=== PATIENT | female | born 1945 | race Caucasian/White ===

== ENCOUNTER 2021-09-05 14:58 | Outpatient (RCR) | payer MEDICARE, SELFPAY | END 2021-09-23 23:59 | disposition home or self-care (01) | LOC: CCIC 14:58 | PROVIDERS: PCP Family Medicine; Visit Provider Internal Medicine Hematology & Oncology | DX: C50.911 Malignant neoplasm of unspecified site of right female breast (principal); Z17.1 Estrogen receptor negative status [ER-]; M79.10 Myalgia, unspecified site | CPT/HCPCS: 99212; 99214 ==

== ENCOUNTER 2022-02-21 09:28 | Outpatient (CLI) | payer MEDICARE, SELFPAY ==
--- NOTE | 2022-02-21 09:45 | CRLHL7_ITS ---
For Patients: As a result of the Century Cures Act, medical imaging exams and procedure reports are released immediately into your electronic medical record. You may view this report before your referring provider. If you have questions, please contact your health care provider. BILATERAL SCREENING MAMMOGRAM WITH COMPUTER-AIDED DETECTION AND TOMOSYNTHESIS TECHNIQUE: CC and MLO views were obtained. These mammographic images have been obtained using full-field digital technique. These mammographic images were interpreted with the benefit of computer-aided detection. Breast Tomosynthesis was used in this interpretation. COMPARISON FILM: 12/22/20, 12/20/19, 12/17/18. FINDINGS: The breasts are heterogeneously dense, which may obscure small masses IMPRESSION: There is no radiographic evidence for malignancy. ASSESSMENT: BI-RADS Category 2: Benign RECOMMENDATION: Routine screening mammogram in 1 year. A lay language report of this examination will be provided to the patient. Mata Palacios M.D. Diagnostic Radiologist [email or web address] CJ/Dictated by: Mata Palacios MD @ 02/21/2022 10:53:00 AM (Electronically Signed)
== END 2022-02-21 09:29 | disposition home or self-care (01) ==
LOC: MAMMO 09:30
PROVIDERS: PCP Family Medicine; Visit Provider Internal Medicine Hematology & Oncology
DX: Z12.31 Encounter for screening mammogram for malignant neoplasm of breast (principal); R92.2 Inconclusive mammogram
CPT/HCPCS: 77063; 77067

== ENCOUNTER 2022-03-07 10:45 | Outpatient (CLI) | payer MEDICARE, SELFPAY ==
[2022-03-07 13:00] LABS: Albumin* 4.5 g/dL (3.3-5.0); Chloride* 106 mmol/L (96-114)
[2022-03-07 13:01] LABS: Potassium* 4.5 mmol/L (3.6-5.1); Sodium* 141 mmol/L (135-149)
[2022-03-07 13:03] LABS: Bilirubin Total* 0.5 mg/dL (0.1-1.5); Carbon Dioxide* 30 mmol/L (20-32); Cholesterol* 183 mg/dL (90-199); Creatinine* 0.8 mg/dL (0.5-1.5); Estimated Glomerular Filt Rate 75 ml/min; Total Protein* 7.3 g/dL (6.0-8.3)
[2022-03-07 13:04] LABS: Alanine Aminotransferase* 18 U/L (4-35); Alkaline Phosphatase* 57 U/L (40-150); Aspartate Amino Transferase* 25 U/L (12-35); Blood Urea Nitrogen* 14 mg/dL (7-30); Calcium* 9.7 mg/dL (8.4-10.6); Glucose* 97 mg/dL (60-115); HDL Cholesterol* 65 mg/dL (>=50); LDL Cholesterol Calculated 82 mg/dL (<100); Triglycerides* 178 mg/dL (40-149)
[2022-03-07 13:32] LABS: TSH With Reflex to FT4* 0.539 uIU/mL (0.270-4.200)
== END 2022-03-07 10:46 | disposition home or self-care (01) ==
LOC: NFLDREF 10:45
PROVIDERS: PCP Family Medicine; Visit Provider Family Medicine
DX: E78.5 Hyperlipidemia, unspecified (principal); E03.9 Hypothyroidism, unspecified
CPT/HCPCS: 80053; 80061; 84443

== ENCOUNTER 2023-02-25 09:58 | Outpatient (CLI) | payer MEDICARE, SELFPAY ==
--- NOTE | 2023-02-25 10:15 | CRLHL7_ITS ---
For Patients: As a result of the Century Cures Act, medical imaging exams and procedure reports are released immediately into your electronic medical record. You may view this report before your referring provider. If you have questions, please contact your health care provider. BILATERAL SCREENING MAMMOGRAM WITH COMPUTER-AIDED DETECTION AND TOMOSYNTHESIS TECHNIQUE: CC and MLO views were obtained. These mammographic images have been obtained using full-field digital technique. These mammographic images were interpreted with the benefit of computer-aided detection. Breast Tomosynthesis was used in this interpretation. COMPARISON FILM: 02/21/22, 12/22/20, 12/20/19. FINDINGS: The breasts are heterogeneously dense, which may obscure small masses IMPRESSION: There is no radiographic evidence for malignancy. ASSESSMENT: BI-RADS Category 2: Benign RECOMMENDATION: Routine screening mammogram in 1 year. A lay language report of this examination will be provided to the patient. Mata Palacios M.D. Diagnostic Radiologist [email or web address] MAX/[email or web address] Transcribed: 4:50 p.mValdo so/Dictated by: Mata Palacios MD @ 02/25/2023 12:14:00 PM (Electronically Signed)
== END 2023-02-25 09:59 | disposition home or self-care (01) ==
LOC: MAMMO 09:59
PROVIDERS: PCP Family Medicine; Visit Provider Family Medicine
DX: Z12.31 Encounter for screening mammogram for malignant neoplasm of breast (principal); R92.2 Inconclusive mammogram
CPT/HCPCS: 77063; 77067

== ENCOUNTER 2023-03-03 09:50 | Outpatient (RCR) | payer MEDICARE, SELFPAY | END 2023-03-29 23:59 | disposition home or self-care (01) | LOC: CCIC 09:50 | PROVIDERS: PCP Family Medicine; Visit Provider Physician Assistant | DX: C50.911 Malignant neoplasm of unspecified site of right female breast (principal); Z17.1 Estrogen receptor negative status [ER-]; M25.512 Pain in left shoulder; M54.9 Dorsalgia, unspecified | CPT/HCPCS: 99212; 99213; 99214; G0463 ==

== ENCOUNTER 2023-03-25 10:26 | Outpatient (CLI) | payer MEDICARE, SELFPAY | END 2023-03-25 10:27 | disposition home or self-care (01) | PROVIDERS: PCP Family Medicine; Visit Provider Family Medicine | DX: E78.2 Mixed hyperlipidemia (principal); E03.9 Hypothyroidism, unspecified; R53.83 Other fatigue | CPT/HCPCS: 80053; 80061; 84443 ==

== ENCOUNTER 2023-07-02 12:31 | Outpatient (RCR) | payer MEDICARE, SELFPAY | END 2023-12-29 23:59 | disposition home or self-care (01) | LOC: CCIC 12:31 | PROVIDERS: PCP Family Medicine; Visit Provider Internal Medicine Hematology & Oncology | DX: C50.911 Malignant neoplasm of unspecified site of right female breast (principal); Z17.1 Estrogen receptor negative status [ER-]; Z85.3 Personal history of malignant neoplasm of breast | CPT/HCPCS: 99214; G0463 ==

== ENCOUNTER 2023-09-26 06:29 | Day surgery (SDC) | payer MEDICARE, SELFPAY ==
[2023-09-26] VITALS (9 sets, daily range): BP systolic 151–176; BP diastolic 70–84; PULSE 61–73; RESP 16–18; TEMP 36.5–36.6; O2SAT 96–100; BMI 33.6
--- OUTSIDE RECORDS SUMMARY | 2023-09-26 06:32 | XMS_ITS | Clinical Summary ---
Author Organization [facility] Address [place], [place] [address] Care Team Providers Care Network Operations Analyst Name Role Phone Bailee Edwards RN Unavailable [phone] Allergies No known active allergies Medications Medication Sig Dispensed Refills Start Date End Date Status DOCOSAHEXANOIC ACID/EPA (FISH OIL ORAL) Take by mouth. Active bisacodyl (DULCOLAX, BISACODYL,) 5 mg tablet Take 1 tablet by mouth once daily if needed for Constipation. 0 09/18/2017 Active acetaminophen (TYLENOL EXTRA STRGTH) 500 mg tabletIndications:[place] east cancer, right breast (HC) Take 2 tablets by mouth every 6 hours if needed. Max acetaminophen dose: 4000mg in 24 hrs. 30 tablet 01/18/2020 Active cyclobenzaprine (FLEXERIL) 5 mg tablet Take 1 tablet (5 mg total) by mouth 3 (three) times a day as needed for muscle spasms (Prior to radiotherapy). 30 tablet 03/15/2020 Active escitalopram oxalate (LEXAPRO) 10 mg tabletIndications:Ge neralized anxiety disorder Take 1 tablet by mouth daily 90 Tablet 11/14/2020 Active Lactobac 40-Bifido 3-S.thermop (Probiotic) 100 billion cell capIndications:Acute diverticulitis,Acute cystitis without hematuria Take 1 Tablet by mouth once daily. 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, estrogen receptor negative 01/12/2020 Cancer Staging:Clinical stage from 01/12/2020:Stage IB(cT1a, cN0, cM0, G2, ER-, FL-, HER2-) - Signed by Gee Ochoa MD on 01/12/2020 Hyperopia of both eyes with astigmatism and pres byopia 09/18/2017 Breast cancer left breast 2010 lumpectomy w/axillary node dissection for stage IIA 12/22/2010 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 Immunizations Name Administration Dates Next Due COVID-19 vaccine (Moderna 100mcg/0.5mL) [place] 06/21/2020,05/25/2020 Influenza, High-dose Inactivated 017,11/15/2015,12/03/2014,2013,11/09/2012,10/22/2011,11/27/2010 Influenza, High-dose Quadriv alent Inactivated 12/24/2019 Influenza, IIV3 (Age 6-35 mos) 11/17/2008 Influenza, IIV3 (Age >=3 years) 12/10/2007 Influenza, Inactivated AIIV4 (Age 65+ Years) Preserv Free 12/22/2020 Influenza, Inactivated IIV3 (Age 65+ Years) Preserv Free 11/13/2018,12/01/2016 MMR 03/28/2014 Pneumococcal Poly,23-Valent (Pneumovax) 10/22/2011 Tdap 12/03/2014 Zoster (Zostavax-ZVL, live) 10/17/2010 Family History Medical History Relation Name Comments Genetic Other daughter - glau coma suspect Cancer-breast No Family History Cancer-colon No Family History Cancer-ovarian No Family History Cancer-prostate No Family History Relation Name Status Comments Mother (Age 66) Other Social History Tobacco Use Types Packs/Day Years Used Date Smoking Tobacco: Former Cigarettes Smokeless Tobacco: Never Comments:quit 16yrs ago Alcohol Use Standard Drinks/Week Comments Yes 0 (1 standard drink = 0.6 oz pur e alcohol) PHQ-2 Answer Date Recorded PHQ-2 TOTAL SCORE 0 09/06/2020 Social Connections Answer Date Recorded Frequency of Communication with Friends and Fami ly Not on file 02/22/2021 Financial Resource Strain Answer Date R ecorded Difficulty of Paying Living Expenses Not on file 02/22/2021 Difficulty of Paying Living Expenses Not on file 02/22/2021 Sex and Gender Information Value Date Recorded Sex Assigned at Not on file Gender Identity Not on file Sexual Orientation Not on file Obstetrics History Para Term AB IAB SAB Ectopic Multiple Livin g Live Births 7 7 7 7 Date Outcome GA Total Labor Labor//3rd Weight Sex Type Anes PTL Samantha A1 A5 Name Clin Term Term Term Term Term Term Term Last Filed Vital Signs Vital Sign Reading Time Taken Comments Blood Pressure 136/75 12/08/2020 12:56 PM CDT Pulse 75 12/27/2020 5:54 PM CDT Temperature 36.4 ??C (97.5 ??F) 12/27/2020 5:54 PM CD T Respiratory Rate 16 12/08/2020 12:56 PM CDT Oxygen Saturation 98% 12/27/2020 5:54 PM CDT Inhaled Oxygen Concentration - - Weight 93.2 kg (205 lb 8 oz) 12/27/2020 5:54 PM CDT Height 162.6 cm (5' 4) 04/26/2020 11:41 AM MORPHOLOGIST Body Mass Index 35.27 04/26/2020 11:41 AM MORPHOLOGIST Plan of Treatment Health Maintenance Due Date Last Done Comments Hepatitis C screening for ag e 18-79 10[birth year]11/1963 DEXA/DXA scan for age 65+ 10/11/2008 Medicare Wellness for age 65+ 10/11/2008 Zoster (shingles) series for age 50+ (2 of 3) 12/12/2010 10/17/2010 Pneumococcal series for age 65+ (2 of 2 - PCV) 10/21/2012 10/22/2011 BMI (ht and wt on same day) for age 18+ 04/26/2021 04/26/2020, 01/10/2020 Depression screening for age 12+ 09/06/2021 09/07/19 21, 04/26/2020 COVID-19 vaccine series (3 - 2022- season) 2022 06/21/2020, 05/25/2020 Influenza for age 65+ 10/26/2023 12/22/2020 , 12/24/2019, 11/13/2018, Additional history exists Tetanus booster 12/03/2024 12/03/2014 Tdap Completed 12/03/2014 Advance Directives * Full Code (Latest Code Status on File) Date Activated Date Inactivated Comments 01/18/2020 8:28 AM 01/18/2020 3:33 PM Question Answer Comments Code Status Discussion: Not Discussed * Full Code Date Activated Date Inactivated Comments 12/14/2010 6:37 AM 12/15/2010 2:58 AM * Full Code Date Activated Date Inactivated Comments 11/13/2010 5:44 PM 11/14/2010 7:14 PM Care Teams Network Operations Analyst Relationship Specialty Start Date End Date Bailee Edwards, RN [address] [facility] [address] [place] [address] Cancer Nurse Coordinator Oncology 01/10/20
--- OUTSIDE RECORDS SUMMARY | 2023-09-26 06:32 | XMS_ITS | Continuity of Care Document ---
Author Organization [facility] Address [address] [address] [place] [address] Phone Care Team Providers Care Edge Dyer Name Role Phone Damien TANNER, Beau Unavailable Unavailable Allergies, Adverse Reactions, Alerts Substance Reaction Status Criticality No Known allergies Medications Medication Instructions Dosage Effective Dates (start - stop) Status Comments MiralaxBisacodylMagCit Colon Prep Use as directed - Active simvastatin 10 mg Tab one tablet a day - Active cyclobenzaprine 10 mg Tab every day as needed - Active naproxen 500 mg Tab Take 2 tabletsby mouth daily as needed - Active Tylenol unknown as needed - Active Synthroid unknown Take 1 tablet by mouth daily - Active Nephrocaps 1 mg Cap 1 tab po qd - Acti ve [place] Aspirin 325 mg Tab Take one t ablet by mouth daily - Active Stool Softener 100 mg Cap one tablet a day 2007 - Active Procedures Procedure Date Level Iv-surg Path Gross/micro 08 Offic Cons New/estab Mod-hi 60 08 Advance Directives Directive Yes / No Effective Date File Name No Information Encounters Encounter Description Practice Location Reason(s) For Visit Diagnoses Date Provider Providers Copied on Encounter [facility], [address] [address], [place], [id number], [place] tel:[phone] [facility] No Information [address] Damien Yanez. [address] [facility], [place], [place], [id number], [place]. tel:[phone] [facility], [address] [address], [place], [id number], [place] tel:[phone] [facility] No Information 8 Satish Hyde. [address] [facility], [address], [place], [place], [id number], [place]. tel:[phone] [facility], [address] [address], [place], [id number], [place] tel:[phone] [facility] DiarrheaColon Cancer Screening 8 No Information Offic Cons New/estab Mod-hi 60 [facility], [address] [address], [place], [id number], [place] tel:[phone] [facility] Irritable Bowel Syndrome 8 No Information Family History Family Member Type Diagnosis Age At Onset First degree family history Problem (finding) alcoholism First degree family history Problem (finding) Cirrhosis First degree family history Problem (finding) No history of Crohn's First degree family history Problem (finding) No history of Ulcerative Colitis First degree family history Problem (finding) No history of Cancer, colon First degree family history Problem (finding) No Family history of No history of Colon Polyps Payers Payer name Insurance type Covered green party ID Authoriza tion(s) No Information Social History Type Description Quantity Date Captured Comments Sex Female Smoking Status No Information Chief Complaint And Reason For Visit No Information Reason For Referral Reason For Referral No Information History Of Present Illness Encounter Date Complaint History Of Prese nt Illness No Information Functional Status Date Functional Assessmen t No Information Instructions Date Instruction Additional Infor mation No Information Assessments Type Assessment Date No Information Patient Care Teams Name Effective Dates (start - stop) Status Members No Information
--- NOTE | 2023-09-26 07:01 | W.PM.H&PU ---
History & Physical Update History & Physical Update H&P Reviewed and patient assessed: No changes noted
--- NOTE | 2023-09-26 07:26 | P.ORPRC_ITS ---
Procedure Note Date of procedure: 09/26/23 Procedure: PREOPERATIVE DIAGNOSIS: 1. Right middle trigger digit POSTOPERATIVE DIAGNOSIS: 1. Right middle trigger digit PROCEDURE: 1. Right middle trigger (A1 zev) release SURGEON: Placido Kamara MD. HARBOR TUG CAPTAIN: Santiago Meek. An production assistant was critical for this case to aid in patient positioning, tissue retraction, limb manipulation/positioning, and closure. ANESTHESIA: Local anesthetic IMPLANTS: None TOURNIQUET: For min at 200 mmHg COMPLICATIONS: None INDICATIONS: The patient is a pleasant 77-year-old female who has history of right middle finger pain and triggering. Symptoms did not improve with conservative management. Patient subsequently elected to proceed with surgical intervention consisting of right middle finger A1 zev release. Prior to surgery risks and benefits were discussed with patient all questions were answered informed consent was obtained. DESCRIPTION OF PROCEDURE: Patient was seen preoperatively and operative site was marked. Patient was then brought to the operating room placed in supine position on the OR table. A tourniquet was placed on the patient's right arm and right upper extremity was prepped and draped in usual sterile fashion. A surgical time-out was performed confirming patient name, procedure, and location. The subcutaneous tissues overlying the right middle finger A1 zev were injected with combination of 1% lidocaine and 0.25% bupivacaine. Operative extremity was then elevated and exsanguinated with an Esmarch, and tourniquet was inflated to 200 mmHg. A skin incision measuring approximately 1 cm was made longitudinally over the A1 zev of the right middle finger. Blunt dissection was used to dissect through subcutaneous tissues. The underlying flexor tendons and A1 zev were identified and retractors were used to protect the neurovascular structures. The A1 zev was then released using a tenotomy scissor. After complete release of the A1 zev, the patient was asked to flex and extend their fingers, and no active triggering was noted. Tourniquet was then released and hemostasis was achieved with bipolar electrocautery. Total tourniquet time was for minutes. Wound was the irrigated with normal saline. Skin incision was closed with 4-0 nylon horizontal mattress sutures, and a sterile dressing was applied. Patient was then transferred to the recovery room in stable condition. POSTOPERATIVE PLAN: 1. Patient will be discharged to home day of surgery. 2. They were given instructions for wound care and finger range of motion exercises. 3. Return to the clinic for follow-up evaluation in 10-14 days for wound check and suture removal.
[2023-09-26] MEDS: BUPIVACAINE 0.25% 30 ML INJECTION (07:35)
[2023-09-26] MEDS: BACITRACIN OINTMENT BULK TUBE 1 APPLIC TOPICAL (08:00)
== END 2023-09-26 08:19 | disposition home or self-care (01) ==
LOC: OR 06:30
PROVIDERS: PCP Family Medicine; Visit Provider Orthopaedic Surgery
PROC: (CPT 26055; principal; 2023-09-26 07:30)
DX: M65.331 Trigger finger, right middle finger (principal)
CPT/HCPCS: 26055; J0665

== ENCOUNTER 2023-12-18 11:15 | Outpatient (RCR) | payer MEDICARE, SELFPAY ==
--- NOTE | 2023-07-29 13:23 | OT.OPOE ---
OT Outpatient Ortho Eval OT Outpatient Ortho Eval* Start: 07/29/23 09:18 Freq: Status: Active Protocol: Document 07/29/23 09:18 REMBERTO (Rec: 07/29/23 13:20 REMBERTO [id number]) E-signed By Nubia Callahan, OTR/L, CLT OT OP Ortho Eval Details Complexity Complexity Medium Insurance Information Insurance Information Blue Cross/Blue Shield, Medicare B Outpatient History/Precautions Current Condition/Medical Diagnosis Referring Provider Dr. Michelle Carr Medical Diagnoses M79.641 Pain in the Right Hand M79.642 Pain in the Left Hand Treatment Diagnosis R20.2 paresthesia M62.81, hand weakness Date of Onset Chronic, >1 year and worse in the last 3 months Medical Conditions Depression,Arthritis Other Conditions PMH includes but is not limited to: Bilateral hand pain (Acute) M79.641 - Pain in right hand ( ICD-10) M79.642 - Pain in left hand ( ICD-10) Right knee pain (Acute) M25.561 - Pain in right knee ( ICD-10) Left shoulder pain (Acute 2020 ) ~01/2021. referred to [facility] PT M25.512 - Pain in left shoulder (ICD-10) Hyperlipidemia (Acute) E78.5 - Hyperlipidemia, unspecified (ICD-10) Major depression (Acute) F32.9 - Major depressive disorder, single episode, unspecified (ICD-10) Hypothyroidism (Acute) E03.9 - Hypothyroidism, unspecified (ICD-10) Back pain (Acute) M54.9 - Dorsalgia, unspecified (ICD-10) Breast cancer (Acute 2019) R 12/2019 s/p lumpy&rad. L 2010 s/p lumpy, rad & chemo. continues yearly mammograms C50.919 - Malignant neoplasm of unspecified site of unspecified female breast (ICD -10) Medications: acetaminophen 325 mg PO Q4H PRN cholecalciferol (vitamin D3) 25 mcg PO BID docusate sodium 100 mg PO BID escitalopram oxalate 10 mg PO DAILY levothyroxine 112 mcg PO DAILY multivitamin with minerals ( Multiple Vitamin-Minerals tablet) 1 tab PO QDAY omega-3 fatty acids 1,000 mg PO BID simvastatin 20 mg PO .Bedtime Medical/Functional History Medical History Reviewed Yes Prior Level of Function/Mobility Patient lives with her spouse (Iván) in [place], she is retired (was a business specialist for 18 years) and now enjoys crocheting, caring for her pets and reading. Social History Employment Status Retired Current Occupation Retired business specialist Hobbies crocheting, caring for her pets and reading. Fitness Does shoulder exercises that were prescribed to her a few years ago Ortho Subjective Subjective Subjective This is a 77 year old patient, who was seen in the clinic on 07/02/23 for hand pain. Her PCP is Dr. Homar Salcedo. I reviewed his note from February 2023 which described bilateral hand pain most likely from osteoarthritis and a recommendation was given for thermal gloves. She has chronic bilateral hand pain especially her right middle finger has been hurting (PIP and MCP joints). Both hands feel very stiff in the morning . She did have bilateral x- rays done at the apt on 07/02/23 . She reports some burning sensation on the right and left hand as well which follows the median nerve pathway (could be having mild carpal tunnel symptoms). She likes to tiarra, read, take care of her yard outside in the summer (pull weeds) and care for her pets. Pain Assessment Pain Pain Yes Pain Comments 5/10 R hand middle finger bilateral thumbs 4/10 OT Objective Data Skin/Wounds/Edema Comments On Eval, no noticeable swelling was present but patient (and her spouse who was present for this EVAL) reported intermittent swelling on the R hand only Sensation Sensation Assessment Summary Comments Sensation is intact to hot/ cold, pressure and light touch Patient describes a burning sensation on the middle finger and thenar pad bilateral hands Additional Information Objective Additional Information Hands bilaterally there is not significant lesions. Some osteoarthritic changes in the thumb base on both sides. Right middle finger has a little enlarged PIP joint there is some palpation tenderness on MCP joint on the middle finger. She has equal banking officer strengths, but therapist was unable to formally test banking officer/pinches on EVAL as the dynamometer was out of the clinic for calibration. There are no lesions present to suggest trigger finger, patient does not report locking or notice any clicking noises, just reporting stifness of the joints. OT Problems Problems Problems Decreased Strength,Decreased Dexterity,Pain,Sensory Sensitivity,Lifting,Gripping, Pinching Problems Comments R hand, middle finger is tight and burning sensation, CMC mild discomfort (swells up) L hand, middle finger is tight and burning sensation, CMC joint of the L hand consistently (does not notice swelling) Problem list includes: Pain to bilateral hands with R ( dominant hand pain worse then the L hand); Paresthesias: numbness and/or tingling, which can impair the patient?s fine motor control of affected digits; Declined banking officer and/or pinch strength to affected hand; Declined endurance of affective hand for repetitive activity; Declined functional use of affective hand for ADL tasks; Declined knowledge of ergonomic education, proper body mechanics and joint protection during ADL?s, and in the work environment. Other Problems Writing,Opening Containers, Dressing,Fasteners,Sleeping Patient Potential Good Assessment Assessment Assessment This is a 77 year old patient, who was seen in the clinic on 07/02/23 for hand pain. Her PCP is Dr. Homar Salcedo. I reviewed his note from February 2023 which described bilateral hand pain most likely from osteoarthritis and a recommendation was given for thermal gloves. She has chronic bilateral hand pain especially her right middle finger has been hurting (PIP and MCP joints). Both hands feel very stiff in the morning . She did have bilateral x- rays done at the apt on 07/02/23 . She reports some burning sensation on the right and left hand as well which follows the median nerve pathway (could be having mild carpal tunnel symptoms). She likes to tiarra, read, take care of her yard outside in the summer (pull weeds) and care for her pets. Problem list includes: Pain to bilateral hands with R ( dominant hand pain worse then the L hand); Paresthesias: burning, numbness and/or tingling, which can impair the patient?s fine motor control of affected digits; Declined banking officer and/or pinch strength to affected hand; Declined endurance of affective hand for repetitive activity; Declined functional use of affective hand for ADL tasks; Declined knowledge of ergonomic education, proper body mechanics and joint protection during ADL?s, and in the work environment. PLAN: treat pain symptoms with the use of modalities as indicated, manual therapy, development of an individualized HEP to progress /improve banking officer and pinch strength, patient education on the progression of treatment (splinting wear schedule), education on CTS & CMC arthritis; Pt will be referred back to referring physician/ ORTHO provider should symptoms persist or worsen. Patient is agreeable to the plan and motivated to make progress. Occupational Therapy Treatment Plan - OP Potential Rehabilitation Potential Good Barriers Barriers to goal attainment Chronic Arthritis Set Goals Goals Set with Patient Yes Goals Goals 1. Patient will have an increase in score on the Upper Extremity Functional Index ( UEFI) (higher score =less impairment). Score on EVAL 50/ 80 2. Patient upon discharge from therapy should be independent with home program and have returned to their premorbid level of function 3. Patient will demonstrate independence with adaptations and adaptive equipment during ADL?s w/o verbal cues. 4. Patient will report resolution of paresthesias and /or pain to affected hands ( both R and L). 5. Patient will report the ability to lift her crockpot from the kitchen sink to the kitchen island. Target Date 12 weeks Treatment Plan Treatment Plan Evaluation,Edema Control, Iontophoresis,Joint Mobilization,Manual Therapy, Splinting,Ultrasound, Therapeutic Exercise,Self Care /Home Management,Education Expected Frequency 1-2x Week Expected Duration 8-10 Weeks Home Program Home Program Home Program Initiated Home Program Specifics Tendon Gliding Exercise 1. Straight 2. Salute 3. Hook 4. Straight Fist Always return to straight after each exercise Repeat 8 ? 10 times, 3 ? 4 times per day 2. FDS Gliding Hold fingers as shown. Bend the involved finger at the middle joint (PIP joint), hold for 5 seconds, and then straighten the finger. Repeat 8 ? 10 times, 3 ? 4 times per day 3. Active Finger Extension Exercises 1. Blocked PIP Extension Holding involved finger with uninvolved hand, straighten finger fully, focusing on extension at middle joint ? hold for a few seconds. Repeat 8 ? 10 times, 3 ? 4 times per day 4. Salute Bend fingers at large joints as far as possible, keeping middle and distal joints straight, then return to starting position. Repeat 8 ? 10 times, 3 ? 4 times per day. 5. Finger Extension With your hand and fingers resting on the table lift all fingers up, while keeping your hand flat. Repeat 8 ? 10 times, 3 ? 4 times per day. 6. Individual Finger Extension With your hand and fingers resting on the table lift each finger individually, while keeping your hand flat. Repeat 8 ? 10 times, 3 ? 4 times per day 7. Gentle putty squeezes 2-3 mins in each hand 2x/daily ( building up to 5 mins in each hand 3x/daily) Isometric thumb extension ( pushing up): With your hand resting on the little finger side, place your thumb in the position in the picture. Use your other hand to resist (or block) your thumb from trying to push up towards the ceiling . Push against this resistance 3 times, at about 10 % of your full force, for 5 seconds to start with. Gradually build up the force of the contraction, the time you hold it, and the repetitions when able. Isometric abduction (pushing out): Staying in the same position, move your thumb outwards and use your other hand to resist or block the movement Push against this resistance 3 times, at about 10 % of your full force, for 5 seconds to start with. Gradually build up the force of the contraction, the time you hold it, and the repetitions when able. Isometric adduction (pulling in): This time resist the movement of the thumb pulling in towards the fingers. Push against this resistance 3 times, at about 10 % of your full force, for 5 seconds to start with. Gradually build up the force of the contraction, the time you hold it, and the repetitions when able. Isometric wrist strengthening: With your elbow at 90 degrees and your wrist straight, hold a bottle of water (filled to the right weight for you) or a dumbbell. Start with a 5 second hold, for 5 repetitions , and again build up weight and time as you are able. Certification Certification Statement I Certify That: Therapy Services Provided, Therapy Plan Established, Therapy Plan Reviewed Certification Information Clinic ID # [id number] Initial Certification Date 07/29/23 Recertification Due Date 10/27/23 Provider Signature Required Yes Provider Signature Shows Agreement With POC & Medical Necessity Physician NPI Number Write NPI# Here Physician Comment/Change Comment or Changes Physician Signature & Date Requested Please Sign/Date Here
--- NOTE | 2023-10-23 09:50 | OT.OPODN ---
OT Outpatient Ortho Daily Note OT Outpatient Ortho Daily Note* Start: 07/29/23 09:18 Freq: Status: Active Protocol: Document 10/23/23 09:43 REMBERTO (Rec: 10/23/23 09:49 REMBERTO [email or web address]) E-signed By Nubia Callahan OTR/L, CLT Type of Note Type of Note Type of Note Daily Note,Recert/Progress Note Visit Number 11 Comments Patient underwent a trigger finger release surgery on PROCEDURE: 1. Right middle trigger (A1 zev) release SURGEON: Placido Kamara MD. Status post trigger finger release (Acute) Z98.890 - Other specified postprocedural states (ICD-10) Trigger finger, right middle finger (Acute) - M65.331 - Trigger finger, right middle finger (ICD-10) She had her f/u apt with Ortho provider on 10/09/23. The following note was copied from chart: Doing well status post right middle finger trigger release. Sutures removed and replaced with Steri-Strips. Patient was instructed on finger range of motion exercises and scar tissue mobilization techniques . She may gradually increase activities as tolerated but should avoid heavy lifting and weight-bearing on the hand for another 2-4 weeks. The burning sensation in her hands may be secondary to carpal tunnel syndrome. Discussed further evaluation with EMG nerve conduction studies. After discussion, she states that she was not interested in further workup at this time but will contact us should these symptoms become more of an issue. She was instructed to return for follow-up evaluation on an as-needed basis. Insurance Information Insurance Information [employer], Medicare B Outpatient History/Precautions Current Condition/Medical Diagnosis Referring Provider Dr. Michelle Carr Medical Diagnoses M79.641 Pain in the Right Hand M79.642 Pain in the Left Hand Treatment Diagnosis R20.2 paresthesia M62.81, hand weakness Date of Onset Chronic, >1 year and worse in the last 3 months Other Precautions 10/09/23: She may gradually increase activities as tolerated but should avoid heavy lifting and weight- bearing on the hand for another 2-4 weeks. s/p R hand, middle finger trigger finger release surgery Medical Conditions Depression,Arthritis Other Conditions PMH includes but is not limited to: Bilateral hand pain (Acute) M79.641 - Pain in right hand ( ICD-10) M79.642 - Pain in left hand ( ICD-10) Right knee pain (Acute) M25.561 - Pain in right knee ( ICD-10) Left shoulder pain (Acute 2020 ) ~01/2021. referred to [facility] PT M25.512 - Pain in left shoulder (ICD-10) Hyperlipidemia (Acute) E78.5 - Hyperlipidemia, unspecified (ICD-10) Major depression (Acute) F32.9 - Major depressive disorder, single episode, unspecified (ICD-10) Hypothyroidism (Acute) E03.9 - Hypothyroidism, unspecified (ICD-10) Back pain (Acute) M54.9 - Dorsalgia, unspecified (ICD-10) Breast cancer (Acute 2019) R 12/2019 s/p lumpy&rad. L 2010 s/p lumpy, rad & chemo. continues yearly mammograms C50.919 - Malignant neoplasm of unspecified site of unspecified female breast (ICD -10) Medications: acetaminophen 325 mg PO Q4H PRN cholecalciferol (vitamin D3) 25 mcg PO BID docusate sodium 100 mg PO BID escitalopram oxalate 10 mg PO DAILY levothyroxine 112 mcg PO DAILY multivitamin with minerals ( Multiple Vitamin-Minerals tablet) 1 tab PO QDAY omega-3 fatty acids 1,000 mg PO BID simvastatin 20 mg PO .Bedtime Medical/Functional History Medical History Reviewed Yes Prior Level of Function/Mobility Patient lives with her spouse (Iván) in [place], she is retired (was a business support associate for 18 years) and now enjoys [employer], caring for her pets and reading. Social History Employment Status Retired Current Occupation Retired business support associate Hobbies [employer], caring for her pets and reading. Fitness Does shoulder exercises that were prescribed to her a few years ago Ortho Subjective Subjective Subjective 10/16/23: Patient is 27 days post op from R hand middle finger A1 zev (trigger finger release surgery). Incision is dry and closed. Radial, ulnar, median sensation intact to light touch. R hand fingers were all warm and well perfused. Recert Note completed today. Patient is reporting itching over the surgical scar on her R hand, explained to her that this is normal with skin healing/re-modeling. Scar line is now closed, no drainage. Provided patient with silicone gel pad to place over the scar incision line (palm of the R hand) which will be held in place with tipless compression glove. 09/25/23: Patient had an ortho apt on 09/11/23, therapist has reviewed that note: History and physical exam consistent with right middle trigger digit(s). Discussed diagnosis and conservative, as well as surgical treatment options. Conservative treatment options include observation, pain management with over-the- counter pain medication, and/ or corticosteroid injection(s) . Alternatively, she may benefit from operative treatment consisting of surgical release of the A1 zev(s) of the involved digit(s). After discussion, patient has elected to proceed with surgery consisting of open right middle finger A1 Zev (Trigger) release. Risks of surgery to include but not limited to infection, neurovascular injury, persistent pain and triggering , and yael-incisional pain were discussed with patient today and all questions were answered. We will schedule surgery at patient's convenience. Patient will be having surgery on 2023 (tomorrow) and return to the clinic in 2 weeks (after she has her f/u with ortho () following surgery to get the official all clear to resume therapy. Pain Assessment Pain Pain Yes Pain Comments 1/10 R hand middle finger. Bilateral thumbs 2/10 OT OP Daily Ortho Note/Assessment Therapeutic Exercise Therapeutic Exercise Minutes (minutes) 33 Therapeutic Exercise Comments Reviewed handout for Trigger Finger Exercises: Tendon Gliding Exercise 1. Straight 2. Salute 3. Hook 4. Straight Fist Always return to straight after each exercise Repeat 8 ? 10 times, 3 ? 4 times per day FDS Gliding Hold fingers as shown. Bend the involved finger at the middle joint (PIP joint), hold for 5 seconds, and then straighten the finger. Repeat 8 ? 10 times, 3 ? 4 times per day Active Finger Extension Exercises 1. Blocked PIP Extension Holding involved finger with uninvolved hand, straighten finger fully, focusing on extension at middle joint ? hold for a few seconds. Repeat 8 ? 10 times, 3 ? 4 times per day 2. Salute Bend fingers at large joints as far as possible, keeping middle and distal joints straight, then return to starting position. Repeat 8 ? 10 times, 3 ? 4 times per day. 3. Finger Extension With your hand and fingers resting on the table lift all fingers up, while keeping your hand flat. Repeat 8 ? 10 times, 3 ? 4 times per day. 4. Individual Finger Extension With your hand and fingers resting on the table lift each finger individually, while keeping your hand flat. Repeat 8 ? 10 times, 3 ? 4 times per day Lastly, explained to patient the importance of frequent icing to the palm side/MCP region of the effected hand 4- 6 times per day with an ice cube for 4-6 minutes at a time for decreasing inflammation. Access Code: [email or web address] URL: [email or web address] Date: 08/05/2023 Prepared by: Nubia Callahan Exercises - Resisted Finger Extension and Thumb Abduction - 1 x daily - 7 x weekly - 3 sets - 10 reps - Seated Finger Composite Flexion Stretch - 1 x daily - 7 x weekly - 3 sets - 10 reps - Seated Finger DIP Flexion AROM with Blocking - 1 x daily - 7 x weekly - 3 sets - 10 reps - Seated Single Finger Extension - 1 x daily - 7 x weekly - 3 sets - 10 reps - Seated Digit Tendon Gliding - 1 x daily - 7 x weekly - 3 sets - 10 reps THESE exercises are on hold -Gentle putty squeezes 2-3 mins in each hand 2x/daily ( building up to 5 mins in each hand 3x/daily) -Isometric thumb extension ( pushing up): With your hand resting on the little finger side, place your thumb in the position in the picture. Use your other hand to resist (or block) your thumb from trying to push up towards the ceiling . Push against this resistance 3 times, at about 10 % of your full force, for 5 seconds to start with. Gradually build up the force of the contraction, the time you hold it, and the repetitions when able. Isometric abduction (pushing out): Staying in the same position, move your thumb outwards and use your other hand to resist or block the movement Push against this resistance 3 times, at about 10 % of your full force, for 5 seconds to start with. Gradually build up the force of the contraction, the time you hold it, and the repetitions when able. Isometric adduction (pulling in): This time resist the movement of the thumb pulling in towards the fingers. Push against this resistance 3 times, at about 10 % of your full force, for 5 seconds to start with. Gradually build up the force of the contraction, the time you hold it, and the repetitions when able. Isometric wrist strengthening: With your elbow at 90 degrees and your wrist straight, hold a bottle of water (filled to the right weight for you) or a dumbbell. Start with a 5 second hold, for 5 repetitions , and again build up weight and time as you are able. Manual Therapy Manual Therapy Minutes (minutes) 11 Manual Therapy Comments R hand, callejas side Instrument-assisted soft tissue mobilization (IASTM) to treat/control edema, increase ROM for functional use and decrease pain for improved musculoskeletal function. Benefits of manual therapy & tissue mobilization includes alignment of fibroblasts and myofibroblasts, restoring gliding between layers of tissue, increase healing time & neurophysiological benefit due to rich proprioceptive input of fascia. Intent for manual therapy is to stimulate hyaluronic acid production and decrease viscosity, stimulate mechanoreceptors & restore gliding/sliding between layer. Total Occupational Therapy Time Occupational Therapy Minutes 44 Home Program Home Program Home Program Compliant Home Program Specifics UPDATED 09/18/23: Handout was provided to patient today for Trigger Finger Exercises: Tendon Gliding Exercise 1. Straight 2. Salute 3. Hook 4. Straight Fist Always return to straight after each exercise Repeat 8 ? 10 times, 3 ? 4 times per day FDS Gliding Hold fingers as shown. Bend the involved finger at the middle joint (PIP joint), hold for 5 seconds, and then straighten the finger. Repeat 8 ? 10 times, 3 ? 4 times per day Active Finger Extension Exercises 1. Blocked PIP Extension Holding involved finger with uninvolved hand, straighten finger fully, focusing on extension at middle joint ? hold for a few seconds. Repeat 8 ? 10 times, 3 ? 4 times per day 2. Salute Bend fingers at large joints as far as possible, keeping middle and distal joints straight, then return to starting position. Repeat 8 ? 10 times, 3 ? 4 times per day. 3. Finger Extension With your hand and fingers resting on the table lift all fingers up, while keeping your hand flat. Repeat 8 ? 10 times, 3 ? 4 times per day. 4. Individual Finger Extension With your hand and fingers resting on the table lift each finger individually, while keeping your hand flat. Repeat 8 ? 10 times, 3 ? 4 times per day Lastly, explained to patient the importance of frequent icing to the palm side/MCP region of the effected hand 4- 6 times per day with an ice cube for 4-6 minutes at a time for decreasing inflammation. Tendon Gliding Exercise 1. Straight 2. Salute 3. Hook 4. Straight Fist Always return to straight after each exercise Repeat 8 ? 10 times, 3 ? 4 times per day 2. FDS Gliding Hold fingers as shown. Bend the involved finger at the middle joint (PIP joint), hold for 5 seconds, and then straighten the finger. Repeat 8 ? 10 times, 3 ? 4 times per day 3. Active Finger Extension Exercises 1. Blocked PIP Extension Holding involved finger with uninvolved hand, straighten finger fully, focusing on extension at middle joint ? hold for a few seconds. Repeat 8 ? 10 times, 3 ? 4 times per day 4. Salute Bend fingers at large joints as far as possible, keeping middle and distal joints straight, then return to starting position. Repeat 8 ? 10 times, 3 ? 4 times per day. 5. Finger Extension With your hand and fingers resting on the table lift all fingers up, while keeping your hand flat. Repeat 8 ? 10 times, 3 ? 4 times per day. 6. Individual Finger Extension With your hand and fingers resting on the table lift each finger individually, while keeping your hand flat. Repeat 8 ? 10 times, 3 ? 4 times per day 7. Gentle putty squeezes 2-3 mins in each hand 2x/daily ( building up to 5 mins in each hand 3x/daily) Isometric thumb extension ( pushing up): With your hand resting on the little finger side, place your thumb in the position in the picture. Use your other hand to resist (or block) your thumb from trying to push up towards the ceiling . Push against this resistance 3 times, at about 10 % of your full force, for 5 seconds to start with. Gradually build up the force of the contraction, the time you hold it, and the repetitions when able. Isometric abduction (pushing out): Staying in the same position, move your thumb outwards and use your other hand to resist or block the movement Push against this resistance 3 times, at about 10 % of your full force, for 5 seconds to start with. Gradually build up the force of the contraction, the time you hold it, and the repetitions when able. Isometric adduction (pulling in): This time resist the movement of the thumb pulling in towards the fingers. Push against this resistance 3 times, at about 10 % of your full force, for 5 seconds to start with. Gradually build up the force of the contraction, the time you hold it, and the repetitions when able. Isometric wrist strengthening: With your elbow at 90 degrees and your wrist straight, hold a bottle of water (filled to the right weight for you) or a dumbbell. Start with a 5 second hold, for 5 repetitions , and again build up weight and time as you are able. OT Problems Problems Problems Decreased Strength,Decreased Dexterity,Pain,Sensory Sensitivity,Lifting,Gripping, Pinching Problems Comments R hand, middle finger is tight and burning sensation, CMC mild discomfort (swells up) L hand, middle finger is tight and burning sensation, CMC joint of the L hand consistently (does not notice swelling) Problem list includes: Pain to bilateral hands with R ( dominant hand pain worse then the L hand); Paresthesias: numbness and/or tingling, which can impair the patient?s fine motor control of affected digits; Declined single stayer operator and/or pinch strength to affected hand; Declined endurance of affective hand for repetitive activity; Declined functional use of affective hand for ADL tasks; Declined knowledge of ergonomic education, proper body mechanics and joint protection during ADL?s, and in the work environment. Other Problems Writing,Opening Containers, Dressing,Fasteners,Sleeping Patient Potential Good Assessment Assessment Assessment This is a 77 year old patient, who was seen in the clinic on 07/02/23 for hand pain. Her PCP is Dr. Homar Salcedo. I reviewed his note from February 2023 which described bilateral hand pain most likely from osteoarthritis and a recommendation was given for thermal gloves. She has chronic bilateral hand pain especially her right middle finger has been hurting (PIP and MCP joints). Both hands feel very stiff in the morning . She did have bilateral x- rays done at the apt on 07/02/23 . She reports some burning sensation on the right and left hand as well which follows the median nerve pathway (could be having mild carpal tunnel symptoms). She likes to tiarra, read, take care of her yard outside in the summer (pull weeds) and care for her pets. Problem list includes: Pain to bilateral hands with R ( dominant hand pain worse then the L hand); Paresthesias: burning, numbness and/or tingling, which can impair the patient?s fine motor control of affected digits; Declined single stayer operator and/or pinch strength to affected hand; Declined endurance of affective hand for repetitive activity; Declined functional use of affective hand for ADL tasks; Declined knowledge of ergonomic education, proper body mechanics and joint protection during ADL?s, and in the work environment. PLAN: treat pain symptoms with the use of modalities as indicated, manual therapy, development of an individualized HEP to progress /improve single stayer operator and pinch strength, patient education on the progression of treatment (splinting wear schedule), education on CTS & CMC arthritis; Pt will be referred back to referring physician/ ORTHO provider should symptoms persist or worsen. Patient is agreeable to the plan and motivated to make progress. Occupational Therapy Treatment Plan - OP Potential Rehabilitation Potential Good Barriers Barriers to goal attainment Chronic Arthritis Set Goals Goals Set with Patient Yes Goals Goals 1. Patient will have an increase in score on the Upper Extremity Functional Index ( UEFI) (higher score =less impairment). Score on EVAL 50/ 80. -progressing, continue 2. Patient upon discharge from therapy should be independent with home program and have returned to their premorbid level of function. - progressing, continue 3. Patient will demonstrate independence with adaptations and adaptive equipment during ADL?s w/o verbal cues. - progressing, continue 4. Patient will report resolution of paresthesias and /or pain to affected hands ( both R and L). -progressing, continue 5. Patient will report the ability to lift her crockpot from the kitchen sink to the kitchen island. -progressing, continue Target Date 12 weeks Treatment Plan Treatment Plan Evaluation,Edema Control, Iontophoresis,Joint Mobilization,Manual Therapy, Splinting,Ultrasound, Therapeutic Exercise,Self Care /Home Management,Education Expected Frequency 1-2x Week Expected Duration 8-10 Weeks Occupational Therapy Billing Units Treatment Minutes Timed Treatment Minutes 44 Total Treatment Minutes 44 Billing Units Manual Therapy 1 Therapeutic Exercise 2 Certification Statement Certification Statement I Certify That: Therapy Services Provided, Therapy Plan Established, Therapy Plan Reviewed Recertification Information Recertification Information Initial Certification Date 07/29/23 Recertification Start Date 10/23/23 Recertification Due Date 12/22/23 Reasons to Continue Skilled Therapy Patient had an ortho apt on , therapist has reviewed that note: History and physical exam consistent with right middle trigger digit(s). Discussed diagnosis and conservative, as well as surgical treatment options. Conservative treatment options include observation, pain management with over-the- counter pain medication, and/ or corticosteroid injection(s) . Alternatively, she may benefit from operative treatment consisting of surgical release of the A1 zev(s) of the involved digit(s). After discussion, patient has elected to proceed with surgery consisting of open right middle finger A1 Zev (Trigger) release. Risks of surgery to include but not limited to infection, neurovascular injury, persistent pain and triggering , and yael-incisional pain were discussed with patient today and all questions were answered. We will schedule surgery at patient's convenience. Patient had surgery on 2023 and now wishes to resume with her therapy and address the post- surgical scar. Rehabilitation Potential Excellent Click To Default 'Per treatment plan' Per treatment plan Continued Plan of Care and Interventions Per treatment plan Provider Signature Required Yes Provider Signature Shows Agreement With POC & Medical Necessity Physician NPI Number Write NPI# Here Physician Comment/Change Comment or Changes Physician Signature & Date Requested Please Sign/Date Here
== END 2023-12-18 12:14 | disposition home or self-care (01) ==
PROVIDERS: PCP Family Medicine; Visit Provider Family Medicine
DX: M79.641 Pain in right hand (principal); M79.642 Pain in left hand; R20.2 Paresthesia of skin; M62.81 Muscle weakness (generalized); Z51.89 Encounter for other specified aftercare
CPT/HCPCS: 97035; 97110; 97140; 97166; X5282

== ENCOUNTER 2024-03-10 10:40 | Outpatient (CLI) | payer MEDICARE, SELFPAY | END 2024-03-10 10:41 | disposition home or self-care (01) | PROVIDERS: PCP Family Medicine; Visit Provider Nurse Practitioner Family | DX: E78.5 Hyperlipidemia, unspecified (principal); E03.9 Hypothyroidism, unspecified | CPT/HCPCS: 80053; 80061; 84443 ==

== ENCOUNTER 2024-03-22 11:16 | Outpatient (CLI) | payer MEDICARE, SELFPAY ==
--- NOTE | 2024-03-22 11:30 | CRLHL7_ITS ---
For Patients: As a result of the Century Cures Act, medical imaging exams and procedure reports are released immediately into your electronic medical record. You may view this report before your referring provider. If you have questions, please contact your health care provider. BILATERAL SCREENING MAMMOGRAM WITH COMPUTER-AIDED DETECTION AND TOMOSYNTHESIS TECHNIQUE: CC and MLO views were obtained. These mammographic images have been obtained using full-field digital technique. These mammographic images were interpreted with the benefit of computer-aided detection. Breast Tomosynthesis was used in this interpretation. COMPARISON FILM: 02/25/23, 02/21/22, 12/22/20. FINDINGS: The breasts are heterogeneously dense, which may obscure small masses. IMPRESSION: There is no radiographic evidence for malignancy. ASSESSMENT: BI-RADS Category 2: Benign RECOMMENDATION: Routine screening mammogram in 1 year. A lay language report of this examination will be provided to the patient. Mata Palacios M.D. Diagnostic Radiologist [email or web address] SP/Dictated by: Mata Palacios MD @ 03/22/2024 12:28:00 PM (Electronically Signed)
== END 2024-03-22 11:17 | disposition home or self-care (01) ==
LOC: MAMMO 11:20
PROVIDERS: PCP Family Medicine; Visit Provider Family Medicine
DX: Z12.31 Encounter for screening mammogram for malignant neoplasm of breast (principal); R92.333 Mammographic heterogeneous density, bilateral breasts
CPT/HCPCS: 77063; 77067

== ENCOUNTER 2024-03-29 12:28 | Outpatient (RCR) | payer MEDICARE, SELFPAY | END 2024-09-25 23:59 | disposition home or self-care (01) | LOC: CCIC 12:28 | PROVIDERS: PCP Family Medicine; Visit Provider Physician Assistant | DX: C50.911 Malignant neoplasm of unspecified site of right female breast (principal); Z17.1 Estrogen receptor negative status [ER-]; Z85.3 Personal history of malignant neoplasm of breast; M25.59 Pain in other specified joint; Z87.891 Personal history of nicotine dependence | CPT/HCPCS: 99214; G0463 ==

== ENCOUNTER 2024-07-01 10:19 | Emergency (ER) | payer MEDICARE, SELFPAY ==
[2024-07-01] VITALS (7 sets, daily range): BP systolic 164–192; BP diastolic 90–104; PULSE 65–78; RESP 14–18; TEMP 36.4; O2SAT 95–97; BMI 33.7
--- OUTSIDE RECORDS SUMMARY | 2024-07-01 10:22 | XMS_ITS | Clinical Summary ---
Author Organization [facility] Address [address] [facility] [address] , [address] [place] [address] Phone Care Team Providers Care Bee Raiser Name Role Phone [facility] Unavailable Unava ilable Conditions or Problems Problem Name Problem Code Onset Date Status Entry Date Provider Comment Standard Description Annotate Hand pain, left 25236499 (SNOMED CT) Active Tara Uri Hand pain Hand pain, right 97812388 (SNOMED CT) Active Tara Uri Hand pain Hand pain 83933327 (SNOMED CT) Inactive Ritchie Varela MD Hand pain Other lesions of median nerve, bilateral upper limbs 315497103 (SNOMED CT) Active Ritchie Varela MD Lesion of median nerve Medications No information available. Medications Administered No information available. Allergies, Adverse Reactions, Alerts No information available. Results Date Name Value Unit Range Flag Description Internal Other: Authorizatio n AUTHBENEFIT Yes Authoriza tion: Assignment of Benefits and Payment Agreement [email or web address] Yes Authorizat ion: Authorization for [facility] to leave messages, voicemail, send text messages, send emails AUTHRELHCARE Yes Authoriz ation: Release/Retrieval of Information to/from Healthcare Facilities, Pharmacy Benefit Payers and Providers ROIAUTHOTHER Yes Authoriz ation: Release of Information - Authorize Others/Insurance - Payment and Healthcare Operations [email or web address] Yes Authoriza tion: Release of Information - Authorize [facility] - Payment and Healthcare Operations AUTHPRIVPRAC Yes Authoriz ation: Notice of privacy practices HIECONSENT Yes Consent To Release information to the Health Information Exchange (HIE) Internal Other: Verbal Autho rization/Emergency Contact VERBAL_EMER Done Verbal au thorization and emergency contact Plan of Care No information available. Procedures Code Procedure Name Date Entry Date CPT-42364 Nerve Conduction 13 or more studies 04/29 CPT-89335 EMG with NCS (5+ muscles) - 2 limbs 04/29 Vital Signs No information available. Immunizations No information available. Advance Directives No information available.
--- OUTSIDE RECORDS SUMMARY | 2024-07-01 10:22 | XMS_ITS | Clinical Summary ---
Author Organization [facility] Address [address] [id number] Care Team Providers Care Controller Repairer And Tester Name Role Phone Bailee Edwards RN Unavailable [phone] Allergies No known active allergies Medications DOCOSAHEXANOIC ACID/EPA (FISH OIL ORAL) Take by mouth. Activ e bisacodyl (DULCOLAX, BISACODYL,) 5 mg tablet Take 1 tablet by mouth once daily if needed for Constipation. 0 09/19/19 18 Active acetaminophen (TYLENOL EXTRA STRGTH) 500 mg tabletIndications: Breast cancer, right breast (HC) Take 2 tablets by mouth every 6 hours if needed. Max acetaminophen dose: 4000mg in 24 hrs. 30 tablet 01/18/20 20 Active cyclobenzaprine (FLEXERIL) 5 mg tablet Take 1 tablet (5 mg total) by mouth 3 (three) times a day as needed for muscle spasms (Prior to radiotherapy). 30 tablet 1 9:42 AM DETENTION SERGEANT 03/15/19 21 Active escitalopram oxalate (LEXAPRO) 10 mg tabletIndications: Generalized anxiety disorder Take 1 tablet by mouth daily 90 Tablet 1 3:27 PM CDT 11/15/19 21 Active Lactobac 40-Bifido 3-S.thermop (Probiotic) 100 billion cell capIndications:Acu te diverticulitis,Acu te cystitis without hematuria Take 1 Tablet by mouth once daily. 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, estrogen receptor negative 01/12/2020 Cancer Staging:Clinical stage from 01/12/2020:Stage IB(cT1a, cN0, cM0, G2, ER-, DC-, HER2-) - Signed by Gee Ochoa MD on 01/12/2020 Hyperopia of both eyes with astigmatism and pres byopia 09/18/2017 Breast cancer left breast 2010 lumpectomy w/axillary node dissection for stage IIA 12/22/2010 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 Immunizations Immunization Administration Dates Next Due COVID-19 vaccine (Moderna 100mcg/0.5mL) MAURISIO MDMaddy 06/21/2020,05/25/2020 Influenza, High-dose Inactivated 017,11/15/2015,12/03/2014,2013,11/09/2012,10/22/2011,11/27/2010 Influenza, High-dose [...] Paying Living Expenses Not on file 02/22/2021 Comments No Sex and Gender Information Value Date Recorded Sex Assigned at Not on file Legal Sex Female 6:57 AM DETENTION SERGEANT Gender Identity Not on file Sexual Orientation Not on file Occupation Industry Job Start Date Job End Date [employer] Not on file Not on file Not on file Obstetrics History Para Term AB IAB SAB Ectopic Multiple Livin g Live Births 7 7 7 7 Date Outcome GA Total Labor Labor/2nd/3rd Weight Sex Type Anes PTL Samantha A1 A5 Name Clin Term Term Term Term Term Term Term Last Filed Vital Signs Vital Sign Reading Time Taken Comments Blood Pressure 136/75 12/08/2020 12:56 PM CDT Pulse 75 12/27/2020 5:54 PM CDT Temperature 36.4 C (97.5 F) 12/27/2020 5:54 PM CDT Respiratory Rate 16 12/08/2020 12:56 PM CDT Oxygen Saturation 98% 12/27/2020 5:54 PM CDT Inhaled Oxygen Concentration - - Weight 93.2 kg (205 lb 8 oz) 12/27/2020 5:54 PM CDT Height 162.6 cm (5' 4) 04/26/2020 11:41 AM DETENTION SERGEANT Body Mass Index 35.27 04/26/2020 11:41 AM DETENTION SERGEANT Plan of Treatment Health Maintenance Due Date Last Done Comments DEXA/DXA scan for age 65+ 10/11/2008 Medicare Wellness for age 65+ 10/11/2008 Zoster (shingles) series for age 50+ (2 of 3) 12/12/2010 10/17/2010 Pneumococcal series for age 50+ (2 of 2 - PCV) 10/21/2012 10/22/2011 RSV vaccine for adults or (1 - 1-dose 75+ series) 10/11/2018 BMI (ht and wt on same day) for age 18+ 04/26/2021 04/26/2020, 01/10/2020 Depression screening for age 12+ 09/06/2021 09/07/19, 04/26/2020 COVID-19 vaccine series ( season) 2023 06/21/2020, 05/25/2020 Influenza Vaccine (Season Ended) 2024 12/22/2020, 11/13/2018, 12/01/2016, Additional history exists Tetanus booster 12/03/2024 12/03/2014 Tdap Completed 12/03/2014 Insurance MEDICARE PART A HB ONLY BLUE CROSS MEDICARE ADVANTAGE Advance Directives * Full Code (Latest Code Status on File) Date Activated Date Inactivated Comments 01/18/2020 8:28 AM 01/18/2020 3:33 PM Question Answer Comments Code Status Discussion: Not Discussed * Full Code Date Activated Date Inactivated Comments 12/14/2010 6:37 AM 12/15/2010 2:58 AM * Full Code Date Activated Date Inactivated Comments 11/13/2010 5:44 PM 11/14/2010 7:14 PM Care Teams Controller Repairer And Tester Relationship Specialty Start Date End Date Bailee Edwards, RN [address] [facility] [address] [place] [address] Cancer Nurse Coordinator Oncology 01/10/20
--- NOTE | 2024-07-01 11:02 | ED.GENADULT ---
HPI - General Adult General Time Seen by Provider: 11:03 Date Seen: 07/01/24 Chief complaint: Hypertension Stated complaint: check High BP Time Seen by Provider: 07/01/24 11:02 Source: patient and RN notes reviewed Mode of arrival: ambulatory Limitations: no limitations History of Present Illness HPI narrative: Analisa is a very pleasant 78-year-old with a history of right rotator cuff pain hyperlipidemia hypothyroidism and breast cancer in 2019 who was sent to the emergency room from urgent care for evaluation of an elevated blood pressure. Patient notes a blood pressure of 212 at urgent care. She had actually presented there non only for that but a feeling of dizziness this morning. Patient notes that she awoke and when she got up to go to the bathroom she felt like she was spinning. This was associated with nausea and a feeling of being unbalanced. She did not fall. She had no chest pain shortness of breath that this. She went to bed last night approximately 0900 hours and went to sleep at 0930 or 10 and had no symptoms at that time. She did not awaken during the overnight hours. Patient is not currently on any blood pressure medications. She denies recent chills or cough. She does note that she is dealing with some spring allergies and has some congestion in her nose and face but no fever chills ear pain sore throat with that. She has also had some increased stressors. present very loving and supportive. No tobacco use. Small amount of alcohol use in the evenings. Last night did have a few drinks. Related Data Home Medications ?Medication ?Instructions ?Recorded ?Confirmed acetaminophen 325 mg capsule 325 mg PO Q4H PRN 09/04/21 05/13/24 omega-3 fatty acids 1,000 mg 1,000 mg PO BID 09/04/21 05/13/24 capsule docusate sodium 100 mg tablet 100 mg PO BID 03/07/22 05/13/24 cholecalciferol (vitamin D3) 25 25 mcg PO BID 05/30/22 05/13/24 mcg (1,000 unit) capsule collagen (bovine) 100 % topical ea topical 03/05/24 05/13/24 powder in packet Previous Rx's ?Medication ?Instructions ?Recorded escitalopram oxalate 10 mg tablet 10 mg PO DAILY #90 tabs 03/11/24 levothyroxine 112 mcg tablet 112 mcg PO DAILY #90 tabs 03/11/24 simvastatin 20 mg tablet 20 mg PO .Bedtime #90 tabs 03/11/24 lisinopril 10 mg tablet 10 mg PO DAILY #14 tabs 07/01/24 Allergies Allergy/AdvReac Type Severity Reaction Status Date / Time No Known Drug Allergies Allergy Verified 07/01/24 13:10 Review of Systems Status of ROS: Reports: 10 or more systems reviewed and unremarkable except as noted in History and below Const: Denies: fever, chills or fatigue Eyes: Denies: change in vision or blurry vision ENMT: Reports: neck pain (States chronic and related to right shoulder), vertigo and nasal congestion; Denies: throat pain or nasal discharge Cardio: Reports: lightheadedness; Denies: chest pain, edema, swelling of feet/ankles or shortness of breath with exertion Resp: Denies: shortness of breath or cough GI: Reports: nausea; Denies: abdominal pain, vomiting or diarrhea : Denies: painful urination or urinary frequency Musculo: Reports: neck pain (States chronic and related to right shoulder) and joint pain (Right shoulder); Denies: back pain Integ/Breast: Denies: rash Neuro: Reports: lack of coordination and vertigo; Denies: headache, numbness in extremities or weakness in extremities Endo: Denies: fatigue PFSH PFSH Medical History Right knee pain ?M25.561 - Pain in right knee (ICD-10) History of diverticulitis (11/2020) ?Z87.19 - Personal history of other diseases of the digestive system (ICD-10) Surgical History Status post cholecystectomy ?Z90.49 - Acquired absence of other specified parts of digestive tract (ICD-10) History of lumpectomy of right breast (12/2019) ?Z98.890 - Other specified postprocedural states (ICD-10) History of lumpectomy of left breast (11/2010) ?Z98.890 - Other specified postprocedural states (ICD-10) History of hysterectomy with bilateral oophorectomy (1993) ?Z90.710 - Acquired absence of both cervix and uterus (ICD-10) ?Z90.722 - Acquired absence of ovaries, bilateral (ICD-10) History of section (1975) ?Z98.891 - History of uterine scar from previous surgery (ICD-10) Social History Narrative: -Iván Former smoker-Quit 2003 What is your current living situation?: I presently have a place to live Problems where you live: no known problems In past 12 months, lack of transportation kept you from medical appts, meetings, work, or getting things needed for daily living: no In the past 12 mos, have been you worried that your food would run out before you had money to buy more?: never true In the past 12 mos, the food you bought just didn't last and you didn't have money to buy more?: never true Smoking Status: Former smoker What tobacco products do you use: cigarettes Smoking quit date/years: >15 years ago Do you use any of these nicotine containing products: None Second hand tobacco smoke exposure: No How often do you have a drink containing alcohol: monthly or less AUDIT-C Alcohol total score: 1 Non-prescribed substance use: denies use How often does anyone, including family, friends and others, physically hurt you: never How often does anyone, including family, friends and others, insult or talk down to you: never How often does anyone, including family, friends and others, threaten you with harm: never How often does anyone, including family, friends and others, scream or curse at you: never Exam Narrative: Exam Narrative: Alert and oriented. Very pleasant. Face symmetrical. Mentation and speech is normal. EOM is full and pupils equal round reactive. Visual lloyd intact. Lips are moist. Eyebrow raise smile symmetrical. Heart with regular rate and rhythm lungs clear to auscultation. Abdomen soft nontender. Lower extremities without edema. Strength intact in all 4 extremities. Upper extremity finger to nose was normal for gross motor movement but fine at touch was somewhat shaky right greater than left. Romberg is negative. Cessation is intact. Const: Vital Signs, click to edit/add: Vital Signs - 24 hr 07/01/24 10:33 07/01/24 12:00 07/01/24 12:42 Temperature 97.6 F Pulse Rate 68 78 Pulse Rate [Pulse Oximeter] 78 Respiratory Rate 18 14 18 Blood Pressure 182/104 H Blood Pressure [Le ft Upper Arm] 192/97 H Pulse Oximetry 96 96 95 Oxygen Delivery Me thod Room Air Room Air 07/01/24 14:31 07/01/24 16:02 07/01/24 18:00 Temperature Pulse Rate 68 65 Pulse Rate [Pulse Oximeter] Respiratory Rate 18 16 Blood Pressure 164/98 H Blood Pressure [Le ft Upper Arm] 168/90 H Pulse Oximetry 97 97 Oxygen Delivery Me thod 07/01/24 18:56 Temperature 97.6 F Pulse Rate Pulse Rate [Pulse Oximeter] 78 Respiratory Rate 16 Blood Pressure Blood Pressure [Le ft Upper Arm] 168/90 H Pulse Oximetry Oxygen Delivery Me thod Documenting provider has reviewed patient's vital signs: yes Course Course ED Course: Last known well between 9 and 2200 hours last night, symptom discovery this morning at Patient will go for CT/CTA as MRI MRA not available at this time. Will also check CBC, comprehensive, troponin, urinalysis EKG. Reevaluation(s) Reevaluation #1: Patient noted to have increased pulmonary congestion on x-ray. Troponins are negative. Have given her 40 of IV Lasix. Blood pressure now 164. Patient feels her symptoms are resolved. She has not yet eaten today but declines any food. She is now complaining of a headache. She is requesting coffee which we will allow. MRI pending. Consultations Consultation #1: Spoke with Dr. Bass neurologist to suggest MRI but is suspicious of hypertension causing this symptoms. Suggest MRI. As we are unable to do MRI MRA at this time will proceed with CT/CTA and follow-up with MR of the brain only. Vital Signs Vital signs: Initial Vital Signs Temperature 97.6 F 07/01/24 10:33 Temperature Source Temporal Artery Scan 07/01/24 10:33 Pulse Rate 78 07/01/24 10:33 Pulse Rhythm Regular 07/01/24 10:33 Respiratory Rate 18 07/01/24 10:33 Blood Pressure 192/97 H 07/01/24 10:33 Blood Pressure Mean 128 H 07/01/24 10:33 Blood Pressure Position Sitting 07/01/24 10:33 Pulse Oximetry 96 07/01/24 10:33 Oxygen Delivery Method Room Air 07/01/24 10:33 Vital Signs Temperature 97.6 F 07/01/24 10:33 Pulse Rate 78 07/01/24 10:33 Respiratory Rate 18 07/01/24 10:33 Blood Pressure 192/97 H 07/01/24 10:33 Pulse Oximetry 96 07/01/24 10:33 Oxygen Delivery Method Room Air 07/01/24 10:33 Temperature 97.6 F 07/01/24 18:56 Pulse Rate 78 07/01/24 18:56 Respiratory Rate 16 07/01/24 18:56 Blood Pressure 168/90 H 07/01/24 18:56 Pulse Oximetry 97 07/01/24 18:00 Oxygen Delivery Method Room Air 07/01/24 12:42 Medications Administered Medications: Discontinued Medications Generic Name Dose Route Start Last Admin Trade Name Erlin PRN Reason Stop Dose Admin Furosemide 40 mg 07/01/24 13:05 07/01/24 13:41 Furosemide 10 Mg/Ml Inj IVP 07/01/24 13:06 40 mg ONCE ONE Administration Medical Decision Making MDM Narrative Medical decision making narrative: 1. Vertigo-improved. CT/CTA without evidence of acute findings. 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 Vertigo likely secondary to hypertension from fluid overload state. 2. Hypertension -blood pressure improved to 164 systolic with 1 dose of Lasix. Patient had multiple trips to the bathroom and blood pressure last measured at 168/90. Will start patient on lisinopril 10 mg daily. Will need follow-up for recheck of potassium creatinine. Fourteen day supply sent to her pharmacy. 3. New onset CHF-proBNP elevated at 1530 with no previous values for comparison. Troponins negative x2 in the ED. Chest x-ray showed mild pulmonary congestion. Patient was given Lasix 40 mg IV and has now urinated 3 times. Will need follow-up echocardiogram. 4. Lung lesion-spiculated lesion incompletely visualized on MRI of the neck and will need follow-up dedicated CT of the chest with primary MD 5. Disposition -home at this time. Follow-up with primary MD to arrange outpatient echocardiogram in regards to the pulmonary congestion/likely new onset CHF, dedicated CT with contrast of the chest for evaluation a spiculated lesion in the left upper lung as well as basic panel recheck for potassium and creatinine consequences of lisinopril use. Currently awaiting neurology suggestion regarding the need for aspirin with evidence of old chronic infarct. Neurology does contact me and agrees with baby aspirin daily as well as follow-up with primary for further workup of stroke risk factors. At this time it is too late to call her this evening but will have nursing staff call her in the morning and suggest 81 mg of aspirin daily. Medical Records Medical records reviewed: Yes I reviewed the patient's medical records Lab Data Lab results reviewed: Yes I reviewed the patient's lab results Labs: Lab Results 07/01/24 07/01/24 07/01/24 Range/Units 11:20 11:38 12:37 WBC 6.76 (4.50-11.00) K/uL RBC 4.60 (4.00-5.20) m/uL Hgb 13.4 (12.0-16.0) gm/dL Hct 42.5 (33.0-51.0) % MCV 92 (80-100) fL MCH 29 (26-34) pg MCHC 32 (32-36) gm/dL RDW Coeff of Demond 13.5 (11.5-15.5) % Plt Count 269 (140-440) K/uL Neut % (Auto) 55.0 (42.0-72.0) % Lymph % (Auto) 31.7 (20-44) % [place] % (Auto) 8.3 (0.0-11.0) % Eos % (Auto) 4.3 (0.0-7.0) % Baso % (Auto) 0.6 (0.0-3.0) % Neut # (Auto) 3.72 (1.7-7.0) K/uL Lymph # (Auto) 2.14 (0.90-2.90) K/uL [place] # (Auto) 0.60 (0.00-0.90) K/UL Eos # (Auto) 0.29 (0.00-0.50) K/uL Baso # (Auto) 0.04 (0.00-0.30) K/uL Abs Immat Gran (auto) 0.01 (0.00-0.30) K/uL Imm/Tot Granulo (auto) 0.1 % Sodium 142 (135-149) mmol/L Potassium 4.7 (3.6-5.1) mmol/L Chloride 103 (96-114) mmol/L Carbon Dioxide 30 (20-32) mmol/L Anion Gap 9 (7-15) mEq/L BUN 16 (7-30) mg/dL Creatinine 0.8 (0.5-1.5) mg/dL Estimated Creat Clear 38.75 Estimated GFR 74 ml/min Glucose 114 (60-115) mg/dL Calcium 9.8 (8.4-10.6) mg/dL Total Bilirubin 0.5 (0.1-1.5) mg/dL AST 31 (12-35) U/L ALT 21 (4-35) U/L Alkaline Phosphatase 68 (40-150) U/L C-Reactive Protein 0.9 (0.5-1.0) mg/dL NT-Pro-B Natriuret Pep pg/mL Total Protein 7.7 (6.0-8.3) g/dL Albumin 4.4 (3.3-5.0) g/dL Urine Color Yellow (Yellow) Urine Appearance Clear (Clear) Urine pH 7.0 (5.0-8.5) Ur Specific [place] 1.015 (1.000-1.030) Urine Protein Negative (Negative) Urine Glucose (UA) Negative (Negative) Urine Ketones Negative (Negative) Urine Blood Trace-intact A (Negative) Urine Nitrite Negative (Negative) Urine Bilirubin Negative (Negative) Urine Urobilinogen 0.2 (0.2-1.0) Ur Leukocyte Esterase 1+ A (Negative) Urine RBC 0-2 (0-2) Urine WBC 2-5 (0-5) Ur Squamous Epith Cells Moderate A (None-Few) Urine Bacteria Moderate A (None) SARS-CoV-2 (PCR) Negative SARS-CoV-2 (Negative) Influenza Type A (PCR) Negative PCR FLU A (Negative) Influenza Type B (PCR) Negative PCR FLU B (Negative) RSV (PCR) Negative PCR RSV (Negative) POC Troponin I 0.00 L (0.01-0.04) ng/ml 07/01/24 07/01/24 Range/Units 13:27 13:37 WBC (4.50-11.00) K/uL RBC (4.00-5.20) m/uL Hgb (12.0-16.0) gm/dL Hct (33.0-51.0) % MCV (80-100) fL MCH (26-34) pg MCHC (32-36) gm/dL RDW Coeff of Demond (11.5-15.5) % Plt Count (140-440) K/uL Neut % (Auto) (42.0-72.0) % Lymph % (Auto) (20-44) % [place] % (Auto) (0.0-11.0) % Eos % (Auto) (0.0-7.0) % Baso % (Auto) (0.0-3.0) % Neut # (Auto) (1.7-7.0) K/uL Lymph # (Auto) (0.90-2.90) K/uL [place] # (Auto) (0.00-0.90) K/UL Eos # (Auto) (0.00-0.50) K/uL Baso # (Auto) (0.00-0.30) K/uL Abs Immat Gran (auto) (0.00-0.30) K/uL Imm/Tot Granulo (auto) % Sodium (135-149) mmol/L Potassium (3.6-5.1) mmol/L Chloride (96-114) mmol/L Carbon Dioxide (20-32) mmol/L Anion Gap (7-15) mEq/L BUN (7-30) mg/dL Creatinine (0.5-1.5) mg/dL Estimated Creat Clear Estimated GFR ml/min Glucose (60-115) mg/dL Calcium (8.4-10.6) mg/dL Total Bilirubin (0.1-1.5) mg/dL AST (12-35) U/L ALT (4-35) U/L Alkaline Phosphatase (40-150) U/L C-Reactive Protein (0.5-1.0) mg/dL NT-Pro-B Natriuret Pep 1530 pg/mL Total Protein (6.0-8.3) g/dL Albumin (3.3-5.0) g/dL Urine Color (Yellow) Urine Appearance (Clear) Urine pH (5.0-8.5) Ur Specific [place] (1.000-1.030) Urine Protein (Negative) Urine Glucose (UA) (Negative) Urine Ketones (Negative) Urine Blood (Negative) Urine Nitrite (Negative) Urine Bilirubin (Negative) Urine Urobilinogen (0.2-1.0) Ur Leukocyte Esterase (Negative) Urine RBC (0-2) Urine WBC (0-5) Ur Squamous Epith Cells (None-Few) Urine Bacteria (None) SARS-CoV-2 (PCR) (Negative) Influenza Type A (PCR) (Negative) Influenza Type B (PCR) (Negative) RSV (PCR) (Negative) POC Troponin I 0.00 L (0.01-0.04) ng/ml Imaging Data CT scan - head: Attestation: I have reviewed the pertinent imaging results. My impression: I do not note any acute bleeding or obvious abnormalities Radiologist's impression: Prominence of the extra-axial CSF spaces most compatible with generalized cerebral volume loss. No acute intracranial hemorrhage, midline shift, hydrocephalus or herniation. Preserved sims-white matter differentiation. Scattered hypoattenuation throughout the cerebral white matter typical of chronic microangiopathy. Unremarkable midline structures. Calcific intracranial atherosclerotic plaquing. Intact calvarium. Near-complete opacification of the right sphenoid sinus with chronic osteitis changes. Clear mastoid air cells. Unremarkable orbits. IMPRESSION: 1. No CT evidence of acute intracranial abnormality. 2. Mild generalized cerebral volume loss and mild-moderate chronic microangiopathy changes. 3. Chronic-appearing right sphenoid sinus mucosal inflammatory changes. CTA head and neck: Radiologist's impression: CTA Head: 1. Moderate stenosis, mid basilar artery, with distal reconstitution. 2. Moderate stenosis, proximal M2 segment branch of the left MCA. 3. No intracranial large vessel occlusion. CTA NECK: 1. No hemodynamically significant stenosis in the neck. 2. Spiculated 17 mm lesion, left upper lobe. Advise dedicated CT chest. MRI brain: Attestation: I have reviewed the pertinent imaging results. Radiologist's impression: The corpus callosum, pituitary gland clivus appear intact. Mild degenerative change visualized upper cervical spine. There is no restricted diffusion. No intracranial hemorrhage. The ventricles are proportionate to the cerebral sulci. The 4th ventricle appears midline. The basal cisterns appear patent. No abnormal extra-axial fluid collection identified. Moderate parenchymal volume loss. Progressed moderate scattered T2 FLAIR hyperintense foci within the subcortical and periventricular white matter, favored to represent chronic ischemic microvascular disease. Chronic left frontal lobe infarct. Chronic deep parietal white matter infarcts. There is no intracranial mass, abnormal mass-effect or midline shift identified. Major intracranial vascular flow voids appear grossly intact. Both globes are preserved. Mild paranasal sinus mucosal disease. Impression: 1. No acute/subacute infarct. 2. Stable small chronic infarcts left frontal lobe and bilateral parietal lobes. 3. Progressed moderate chronic ischemic microvascular disease. ECG Data Attestation: I personally reviewed and interpreted this ECG as follows: Interpretation: EKG by my read shows sinus rhythm at a rate of 73. Nonspecific T-wave changes noted. I do not note any acute ST elevation. QT and RI intervals within normal limits. Discharge Plan Discharge Clinical Impression: Vertigo, Hypertension, New onset of congestive heart failure, Lesion of lung Patient Disposition: Home, Self-Care Condition: Improved Additional Instructions: We will start you on a medication called lisinopril. This is a diuretic of a different class that you received today. Follow-up with your primary MD for ongoing cares. Will need follow-up with your primary MD for 2 reasons: 1. Scheduling of an echocardiogram. You had increased pulmonary congestion from fluid overload which could mean congestive heart failure. You received Lasix which is a diuretic to take some of that fluid away. I am hoping that this makes you feel better. You will need to continue on a diuretic and have your blood reach checked to ensure your kidney function is good after starting this medication. Your creatinine or kidney function number today is 0.8. 2. On the CT of the neck vessels there was a lesion in your left lung that will need to have a dedicated CT of the chest to further evaluate. This needs to be ordered by your primary clinic or physician. MRI and CT of the brain today Prescriptions: New lisinopril 10 mg tablet 10 mg PO DAILY Qty: 14 0RF No Action collagen (bovine) 100 % powder in packet topical omega-3 fatty acids 1,000 mg capsule 1,000 mg PO BID acetaminophen 325 mg capsule 325 mg PO Q4H PRN docusate sodium 100 mg tablet 100 mg PO BID cholecalciferol (vitamin D3) 25 mcg (1,000 unit) capsule 25 mcg PO BID escitalopram oxalate 10 mg tablet 10 mg PO DAILY Qty: 90 3RF levothyroxine 112 mcg tablet 112 mcg PO DAILY Qty: 90 3RF simvastatin 20 mg tablet 20 mg PO .Bedtime Qty: 90 3RF Follow Up/Referrals: Homar Salcedo MD [Primary Care Provider] - Stand Alone Forms: [facility] Info Instructions
--- NOTE | 2024-07-01 11:17 | CRLHL7_ITS ---
For Patients: As a result of the Century Cures Act, medical imaging exams and procedure reports are released immediately into your electronic medical record. You may view this report before your referring provider. If you have questions, please contact your health care provider. INDICATION: Vertigo TECHNIQUE: Noncontrast axial CT of the head. Coronal and sagittal reformats. Bone and soft tissue algorithms. COMPARISON: None. FINDINGS: Prominence of the extra-axial CSF spaces most compatible with generalized cerebral volume loss. No acute intracranial hemorrhage, midline shift, hydrocephalus or herniation. Preserved sims-white matter differentiation. Scattered hypoattenuation throughout the cerebral white matter typical of chronic microangiopathy. Unremarkable midline structures. Calcific intracranial atherosclerotic plaquing. Intact calvarium. Near-complete opacification of the right sphenoid sinus with chronic osteitis changes. Clear mastoid air cells. Unremarkable orbits. IMPRESSION: 1. No CT evidence of acute intracranial abnormality. 2. Mild generalized cerebral volume loss and mild-moderate chronic microangiopathy changes. 3. Chronic-appearing right sphenoid sinus mucosal inflammatory changes. Please note that all CT scans at this facility use dose modulation, iterative reconstruction, and/or weight-based dosing when appropriate to reduce radiation dose to as low as reasonably achievable. Dictated by Jessica Norwood MD @ 07/01/2024 12:57:43 PM (Electronically Signed)
--- NOTE | 2024-07-01 11:17 | CRLHL7_ITS ---
For Patients: As a result of the Century Cures Act, medical imaging exams and procedure reports are released immediately into your electronic medical record. You may view this report before your referring provider. If you have questions, please contact your health care provider. CLINICAL HISTORY: Vertigo. TECHNIQUE: Standard helical CT image acquisition through the head following the administration of intravenous contrast was performed. 3D and MIP reconstructions were performed at a separate workstation and permanently archived. COMPARISON: None available. FINDINGS: No intracranial proximal large vessel occlusion. Moderate short-segment stenosis of mid basilar trunk. Moderate stenosis of the origin of inferior trunk of the left MCA. No evidence of cerebral aneurysm. No findings to suggest an arterial-venous shunting lesion. The major dural venous sinuses and deep venous system are patent. 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 Please note that all CT scans at this facility use dose modulation, iterative reconstruction, and/or weight-based dosing when appropriate to reduce radiation dose to as low as reasonably achievable. Dictated by Bello Harp MD @ 07/01/2024 11:16:33 PM (Electronically Signed)
--- NOTE | 2024-07-01 11:23 | CRLHL7_ITS ---
For Patients: As a result of the Cures Act, medical imaging exams and procedure reports are released immediately into your electronic medical record. You may view this report before your referring provider. If you have questions, please contact your health care provider. Indication: Vertigo Comparison: None available. Technique: Single AP view chest Findings: There are diffusely increased interstitial markings. There is no focal consolidation, effusion, or pneumothorax. The cardiac silhouette is mildly prominent. The bony thorax is grossly intact. Impression: Diffusely increased interstitial markings likely representing mild pulmonary vascular congestion. Dictated by Nelson Santos MD @ 07/01/2024 12:10:28 PM (Electronically Signed)
--- NOTE | 2024-07-01 11:23 | CRLHL7_ITS ---
For Patients: As a result of the Century Cures Act, medical imaging exams and procedure reports are released immediately into your electronic medical record. You may view this report before your referring provider. If you have questions, please contact your health care provider. CLINICAL HISTORY: Vertigo. TECHNIQUE: Standard helical CT image acquisition through the neck was performed after intravenous contrast bolus enhancement. 3D and MIP reconstructions were performed at a separate workstation and permanently archived. COMPARISON: None available. FINDINGS: The origins of the great vessels from the aortic arch are patent. The common carotid arteries are patent. No significant luminal stenoses of the proximal ICAs by NASCET criteria. The more distal cervical segments of the ICAs are patent. The origins and cervical segments of the vertebral arteries are patent. 17mm spiculated lesion in the left upper lobe. Dedicated chest CT examination is recommended. IMPRESSION: 1. Patent cervical arterial vasculature without hemodynamically significant luminal stenosis. 2. 17mm spiculated lesion in the left upper lobe. Dedicated chest CT examination is recommended. Please note that all CT scans at this facility use dose modulation, iterative reconstruction, and/or weight-based dosing when appropriate to reduce radiation dose to as low as reasonably achievable. Dictated by Bello Harp MD @ 07/01/2024 11:13:20 PM (Electronically Signed)
[2024-07-01 11:35] LABS: Basophils Absolute Auto 0.04 K/uL (0.00-0.30); Basophils Percent Auto 0.6 % (0.0-3.0); Eosinophils Absolute Auto 0.29 K/uL (0.00-0.50); Eosinophils Percent Auto 4.3 % (0.0-7.0); Hematocrit 42.5 % (33.0-51.0); Hemoglobin* 13.4 gm/dL (12.0-16.0); Immature Granulocytes Abs Auto 0.01 K/uL (0.00-0.30); Immature Granulocytes Pct Auto 0.1 %; Lymphocytes Absolute Auto 2.14 K/uL (0.90-2.90); Lymphocytes Percent Auto 31.7 % (20-44); Mean Corpuscular HGB Conc 32 gm/dL (32-36); Mean Corpuscular Hemoglobin 29 pg (26-34); Mean Corpuscular Volume 92 fL (80-100); Monocytes Percent Auto 8.3 % (0.0-11.0); Neutrophils Absolute Auto 3.72 K/uL (1.7-7.0); Platelet Count* 269 K/uL (140-440); RDW Coefficient of Variation % 13.5 % (11.5-15.5); White Blood Count* 6.76 K/uL (4.50-11.00)
[2024-07-01 11:40] LABS: Slide Review Reflex No
--- OUTSIDE RECORDS SUMMARY | 2024-07-01 11:40 | XMS_ITS | Clinical Summary ---
Author Organization [facility] Address [address] [place] [id number] Care Team Providers Care Mental Health Assistant Name Role Phone Bailee Edwards RN Unavailable [phone] Allergies No known active allergies Medications DOCOSAHEXANOIC [...] to radiotherapy). 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, estrogen receptor negative 01/12/2020 Cancer Staging:Clinical stage from 01/12/2020:Stage IB(cT1a, cN0, cM0, G2, ER-, NH-, HER2-) - Signed by Gee Ochoa MD [...] on file Legal Sex Female 6:57 AM OIL ANALYST Gender Identity Not on file Sexual Orientation Not on file 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
--- OUTSIDE RECORDS SUMMARY | 2024-07-01 11:40 | XMS_ITS | Clinical Summary ---
Author Organization [facility] Address [address] [facility] , [address] [place] [address] Phone Care Team Providers Care Director Paid Media Name Role Phone [facility] Unavailable Unava ilable Conditions or Problems Problem Name Problem Code Onset Date Status Entry Date Provider Comment Standard Description Annotate Hand pain, left 42779853 (SNOMED CT) Active Tara Uri Hand pain Hand pain, right 71805406 (SNOMED CT) Active Tara Uri Hand pain Hand pain 98044037 (SNOMED CT) Inactive Ritchie Varela MD Hand pain Other lesions of median nerve, bilateral upper limbs 432960290 (SNOMED CT) Active Ritchie Varela MD Lesion [...] Procedures Code Procedure Name Date Entry Date [id number]-53615 Nerve Conduction 13 or more studies 04/29 CPT-94722 EMG with NCS (5+ muscles) - 2 limbs 04/29 Vital Signs No information available. Immunizations No information available. Advance Directives No information available.
[2024-07-01 11:47] LABS: Albumin* 4.4 g/dL (3.3-5.0); Chloride* 103 mmol/L (96-114); Sodium* 142 mmol/L (135-149)
[2024-07-01 11:48] LABS: Potassium* 4.7 mmol/L (3.6-5.1)
[2024-07-01 11:50] LABS: Alanine Aminotransferase* 21 U/L (4-35); Alkaline Phosphatase* 68 U/L (40-150); Anion Gap 9 mEq/L (7-15); Aspartate Amino Transferase* 31 U/L (12-35); Bilirubin Total* 0.5 mg/dL (0.1-1.5); Blood Urea Nitrogen* 16 mg/dL (7-30); Carbon Dioxide* 30 mmol/L (20-32); Creatinine* 0.8 mg/dL (0.5-1.5); Est. Creatinine Clearance* 38.75; Estimated Glomerular Filt Rate 74 ml/min; Total Protein* 7.7 g/dL (6.0-8.3)
[2024-07-01 11:51] LABS: Calcium* 9.8 mg/dL (8.4-10.6); Glucose* 114 mg/dL (60-115)
[2024-07-01 12:03] LABS: C Reactive Protein* 0.9 mg/dL (0.5-1.0)
[2024-07-01 12:44] LABS: PCR FLU A Negative PCR FLU A (Negative); PCR FLU B Negative PCR FLU B (Negative); PCR RSV Negative PCR RSV (Negative); SARS PCR* Negative SARS-CoV-2 (Negative)
[2024-07-01 12:45] LABS: Appearance Urine Clear (Clear); Bilirubin Urine Negative (Negative); Blood Urine Trace-intact (Negative); Color Urine Yellow (Yellow); Glucose Urine Negative (Negative); Ketones Urine Negative (Negative); Leukocyte Esterase Urine 1+ (Negative); Nitrite Urine Negative (Negative); Protein Urine Negative (Negative); Specific Gravity Urine 1.015 (1.000-1.030); Urobilinogen Urine 0.2 (0.2-1.0)
[2024-07-01 12:55] LABS: Bacteria Urine Moderate; RBC Urine 0-2 (0-2); Squamous Epithelial Cell Urine Moderate (None-Few)
--- NOTE | 2024-07-01 13:18 | CRLHL7_ITS ---
For Patients: As a result of the Cures Act, medical imaging exams and procedure reports are released immediately into your electronic medical record. You may view this report before your referring provider. If you have questions, please contact your health care provider. Indication: Vertigo. Technique: Multiplanar, multisequence MRI of the brain was performed without intravenous contrast. Comparison: CT head 07/01/2024. MR brain 01/22/2011. Findings: The corpus callosum, pituitary gland clivus appear intact. Mild degenerative change visualized upper cervical spine. There is no restricted diffusion. No intracranial hemorrhage. The ventricles are proportionate to the cerebral sulci. The 4th ventricle appears midline. The basal cisterns appear patent. No abnormal extra-axial fluid collection identified. Moderate parenchymal volume loss. Progressed moderate scattered T2 FLAIR hyperintense foci within the subcortical and periventricular white matter, favored to represent chronic ischemic microvascular disease. Chronic left frontal lobe infarct. Chronic deep parietal white matter infarcts. There is no intracranial mass, abnormal mass-effect or midline shift identified. Major intracranial vascular flow voids appear grossly intact. Both globes are preserved. Mild paranasal sinus mucosal disease. Impression: 1. No acute/subacute infarct. 2. Stable small chronic infarcts left frontal lobe and bilateral parietal lobes. 3. Progressed moderate chronic ischemic microvascular disease. Dictated by Tirso Gomez MD @ 07/01/2024 6:29:32 PM (Electronically Signed)
[2024-07-01] MEDS: FUROSEMIDE 10 MG/ML inj 40 MG IVP (13:41)
[2024-07-01 14:25] LABS: NT Pro B Type NatriureticPept* 1530 pg/mL
== END 2024-07-01 18:57 | disposition home or self-care (01) ==
PROVIDERS: Emergency Provider Family Medicine; PCP Family Medicine
DX: R42 Dizziness and giddiness (principal); I11.0 Hypertensive heart disease with heart failure; I50.9 Heart failure, unspecified; J98.4 Other disorders of lung; Z87.891 Personal history of nicotine dependence; Z79.899 Other long term (current) drug therapy
CPT/HCPCS: 36415; 70450; 70496; 70498; 70551; 71045; 80053; 81001; 83880; 84484; 85025; 86140; 87086; 87631; 93005; 96374; 96375; 99284; 99285; G0427; J1938; Q9967

== ENCOUNTER 2024-07-07 15:55 | Outpatient (CLI) | payer MEDICARE, SELFPAY | END 2024-07-07 15:56 | disposition home or self-care (01) | LOC: NFLDREF 15:57 | PROVIDERS: PCP Family Medicine; Visit Provider Family Medicine | DX: I10 Essential (primary) hypertension (principal) | CPT/HCPCS: 80048 ==

== ENCOUNTER 2024-07-16 09:50 | Outpatient (CLI) | payer MEDICARE, SELFPAY | END 2024-07-16 09:51 | disposition home or self-care (01) | LOC: RAD 09:51 | PROVIDERS: PCP Family Medicine; Visit Provider Family Medicine | DX: I50.9 Heart failure, unspecified (principal); I51.7 Cardiomegaly; I34.0 Nonrheumatic mitral (valve) insufficiency; I07.1 Rheumatic tricuspid insufficiency | CPT/HCPCS: 93306 ==

== ENCOUNTER 2024-08-10 09:30 | Outpatient (RCR) | payer MEDICARE, SELFPAY ==
--- NOTE | 2024-05-20 11:46 | PT.OPE ---
PT [place] [facility] Eval PT [facility] Out[facility] Eval Start: 05/19/24 16:59 Freq: Status: Active Protocol: Document 05/20/24 08:57 LSL (Rec: 05/20/24 10:05 LSL [id number]) E-signed By Karla De Paz PT Physical Therapy Outpatient Evaluation Insurance Information Recert Due Date 08/18/24 Insurance Name Medicare B,Blue Cross/Blue Shield Insurance Information/Comments Medicare Advantage Medical Diagnosis R rotator cuff tenodintis Treating Diagnosis pain, weakness, impaired ROM Referring MD Kamara Subjective Subjective Pt. reports she had onset of R shoulder pain for 2 years intermittently when our puppy pulled but worsened about 5-6 weeks ago. She is R hand dominant. Patient describes pain on top and front of shoulder with aching radiating into posterior shoulder to the elbow. Reaching hurts in the bicipital tendon region. Icy hot patch, taking tylenol twice per day. Pt. received cortisone injection on 05/13/24 which hasn't helped. Pt. would like to be able to mixing picker tender a heavy skillet, take an item out of the oven, carry a basket of clothes, get things on/off higher shelves. Pt's is having to help her get dressed with bra and shirt . Pain Comments 2-3/10 best, 8/10 worst Date of Last Physician Visit 05/13/24 Current Work Status Retired Precautions Treatment Precautions/Contraindications Breast cancer L 2010, Breast cancer R 2019 Therapy Limitations/Systems Review Other Medical Problem Objective Range of Motion AROM L R PROM R flexion 130 91 132 abduct 172 67 85 IR (HBB) T12 glut 56 ER 79 41 60 Cervical AROM flexion WNL with pull especially into R shoulder, extension 50%, B LF 25% with pain at T-L junction, B cervical rotation 25% PROM B LF 25% with L LF creating pull in the R superior shoulder, R rotation 25% with significant pain R lower cervical, L rotation 30% Strength Cervical 5/5 Elbow L 5/5, R 5/5, elbow 4/5 with pain Shoulder L ER 3+/5, supraspinatus 4/5, R IR too painful to hold, ER 4/5, hor abd 4/5, hor add unable to test due to pain, supraspinatus 3+/5 with pain Palpation R UT, scalenes, LS and rhomboid tight and tender, anterior deltoid and infraspinatus very tight and painful, subscap tender and tight Posture protracted shoulders, forward head Sensation/Reflexes Compression feels good, distraction feels good Other/Pertinent Objective Special + impingement Functional Test Performed & Score QuickDash = 55% Assessment Assessment/Impression Pt. is an 78 y/o female who presents with significant R UE dysfunction limiting her use due to significant pain. MMT was not reliable in many of the tests due to a pain response. Her spouse was present for her session and had to help answer questions about her ability to perform activities around the house. She has significant loss of range both passively and actively and weakness throughout the right rotator cuff and entire right upper quarter. Additionally she has very limited cervical ROM actively or passively and compensatory muscle patterns are making this worse. Additionally she has had two different episodes of breast cancer with estrogen blockers and radiation likely contributing to some of her musculoskeletal dysfunction. She will benefit from PT using therex, NM re-ed, manual therapy and modalities prn to assist in restoring functional ROM and strength so she is not dependent upon her for ADLs, cleaning and cooking chores. Primary Functional Limitations using her R arm in ADLs of dressing and grooming, reaching, lifting, carrying, sleeping Plan of Care Rehabilitation Potential Fair Physical Therapy Goals SHORT TERM GOALS: (4 weeks) 1. Pt. to have 120 degrees of AROM with pain less than 3/10 so she can do self grooming and dressing tasks independently. 2. Pt. able to sleep without waking due to pain. 3. Pt. able to get out of bed independently. MANAGER FILTER GOALS: (8+ weeks) 1. Pt. able to carry a laundry basket with pain less bauer 3/ 10. 2. Pt. able to remove items from the oven with pain less than 3/10. 3. Pt. able to assist in cleaning tasks with pain less than 3/10. Coordination/Communication With Referral Source Treatment Plan/Direct Interventions Electrical Stimulation,Joint Mobilization,Manual Therapy, Neuromuscular Re-ed, Therapeutic Exercises Frequency/Duration 2x/week 6 weeks Patient Will Be Discharged From Therapy Completion of LTG(s),Skills Plateau,Independent w/HEP, Independently Progressing Evaluation Billing Untimed Code Treatment Minutes 50 Complexity Moderate Certification Information Initial Certification Date 05/20/24 Ending Certification Date 08/18/24 Provider Signature Required Yes Provider Signature Shows Agreement With POC & Medical Necessity Physician NPI Number Write NPI# Here Physician Comment/Change : Physician Signature & Date Requested Please Sign/Date Here
--- NOTE | 2024-07-15 14:48 | PT.OP2DDN ---
PT [facility] 2nd Diagnosis Daily Note PT [facility] 2nd Diag Daily Note Start: 07/15/24 10:41 Freq: Status: Active Protocol: Document 07/15/24 10:58 EIE (Rec: 07/15/24 14:41 EIE [id number]) E-signed By Cinthya Cortez, PT PT OP 2nd Diagnosis Daily Note Visit Information Note Type 2nd Diagnosis Daily Note,Re-Evaluation Physician Authorized eval & treat Visits Insurance Information Recert Due Date 09/13/24 Insurance Name Medicare B Medical Diagnosis dizziness & giddiness Referring MD [facility]o Subjective Preferred Name Analisa Subjective Pt reports a week ago she had sudden onset vertigo, sought care at urgent care and was sent to ED. In ED her BP was over 200. She was evaluated and cleared for all immediate cardiovascular/neurological concerns. She 's scheduled to follow up with cardiology tomorrow due to CHF. Her dizziness symptoms have largely resolved, at this point intermittent and mild. She's been able to manage by moving slowly at times, but other times needs to make no adjustments. Does report at times she gets visual fatigue with prolonged reading & looking at the TV. States mild intermittent dizziness has been happening for a while. Pt is currently being treated for R shoulder and neck pain in PT at this clinic. Received new PT orders from ED for evaluation and treatment of dizziness. Objective Other/Pertinent Cervical ROM: Flexion chin to chest, extension 10 deg, Objective rotation 45 deg B, side bending 5-8 deg B; All cervical ROM without dizziness provocation Occulomotor exam- Smooth Pursuits: WFL and asymptomatic vertical, horizontal, diagonal planes Saccades: WFL and asymptomatic vertical, horizontal, & diagonal. convergence/divergence: 5cm, asymptomatic VOR: (-) B Positional testing: Hallpike [place]: (+) R for symptoms, no torsional nystagmus noted [place] L and horizontal canal testing not completed today due to time constraints Functional Test DHI: Score 10/92 (pt left 2 questions unanswered) = 11% Performed & Score disability due to dizziness symptoms, mild handicap according to DHI Patient Instructed Yes in Risks/Benefits Neuromuscular Re-Ed Neuromuscular 12 Reeducation Minutes (minutes) Neuromuscular R leilani x 2, Pt requiring significant cueing to Reeducation Comments maintain neck/head position due to discomfort from pre- existing neck/R shoulder symptoms. Initially no nystagmus noted though symptomatic in positions 1 & 3, second rep through leilani maneuver noted horizontal nystagmus in position 2-3. If symptoms don't resolve suspect horizontal canal involvement. Provided handouts to patient on BPPV and what to expect after repositioning. Gave post-treatment expectations and recommendations encouraging pt to continue normal activity level today aside from repetitive head movements or position changes. Treatment Minutes Untimed Code 30 Treatment Minutes Timed Code Treatment 12 Minutes Total Treatment Time 42 Billing Units Neuromuscular 1 Reeducation Units Re-Evaluation Units 1 Assessment/Impression Assessment/ Pt presents to PT with new order for dizziness 1 week Impression following sudden onset dizziness for which she sought emergency care. Upon evaluation pt demonstrates symptoms consistent with R posterior canaliathasis BPPV . At baseline she has limited cervical ROM and neck/R shoulder pain which may contribute to symptoms or require more treatment sessions than typical to fully resolve BPPV symptoms. Pt is appropriate for skilled PT services to treat vertigo symptoms in order to improve her function with transfers, bed mobility and safety in her home. Recommending 1x/week for up to 4 weeks to specifically treat vertigo, in addition to her existing shoulder POC. Suspect shoulder plan of care may be lengthened in order to accommodate 1 visit per week being allocated to vertigo care. Primary Functional transfers, bending, bed mobility, reading Limitations Plan of Care Physical Therapy To be completed within 4 visits: Goals 1. Pt will report ability to complete bed mobility without dizziness in order to reduce risk for falls. 2. Pt will report ability to complete sit to stand transfers without dizziness in order to safely access home environment. 3. Pt will verbalize self care strategies to manage vertigo symptoms and carryover therapeutic gains following discharge from PT services. Daily Plan of Care Change POC; See Comments Daily Plan of Care Add 1x/week x 4 weeks to existing POC to include Comments treatment of BPPV Certification Information Initial 07/15/24 Certification Date Ending Certification 10/13/24 Date Provider Signature Yes Required Provider Signature POC & Medical Necessity Shows Agreement With Physician NPI Number Write NPI# Here Physician Comment/ : Change
== END 2024-09-14 15:12 | disposition home or self-care (01) ==
PROVIDERS: PCP Family Medicine; Visit Provider Orthopaedic Surgery
DX: M75.81 Other shoulder lesions, right shoulder (principal); H81.10 Benign paroxysmal vertigo, unspecified ear; Z51.89 Encounter for other specified aftercare
CPT/HCPCS: 97012; 97032; 97110; 97112; 97140; 97162; 97164